=== PATIENT | female | born 1965 | race Caucasian/White ===

== ENCOUNTER 2018-03-11 08:30 | Emergency (ER) | payer BC, OTHER ==
[~2018-03-11] VITALS: Ht 162.6 cm; Wt 68.0 kg
--- OUTSIDE RECORDS SUMMARY | 2018-03-11 08:36 | XMS REPORT ---
Author Author ARTURO SORIA [facility] Address [address] [place] [address] Care Team Providers Care Top Hat Body Maker Name Role Phone ARTURO SORIA Unavailable PROBLEMS Unknown Problems ALLERGIES No Information ENCOUNTERS Encounter Location Date Diagnosis [facility] [address] [facility] [address] [id number] [address] Jul, Encounter for immunization Z23 IMMUNIZATIONS Vaccine Route Administration Date Status FLUARIX QUAD (3 AND UP) 2016 IM Intramuscular Jul 26, 2017 Administered SOCIAL HISTORY Never Assessed REASON FOR VISIT flu shot PLAN OF CARE VITAL SIGNS MEDICATIONS Unknown Medications RESULTS No Results PROCEDURES Procedure Date Ordered Result Body Site FLUARIX QUAD (3 AND UP) 2017 Jul 26, 2017 SINGLE IMMUNIZATION ADMIN Jul 26, 2017 INSTRUCTIONS MEDICATIONS ADMINISTERED No Known Medications
[2018-03-11] MEDS ORDERED: NS IV 1000 ML 1,000 ML IV STA (08:39)
[2018-03-11] MEDS ORDERED: ASPIRIN 81 MG CHEW (CHILDREN'S ASA) PO ONE (08:45)
[2018-03-11] MEDS ORDERED: LORazepam INJ 2 MG/ML (ATIVAN) VIAL IVP ONE (08:45)
[2018-03-11] MEDS ORDERED: ONDANSETRON 4 MG/2 ML (SDV) Z0FRAN IVP ONE (08:45)
[2018-03-11 09:00] LABS: BASOPHILS % (AUTO) 1 % (0-10); EOSINOPHILS # (AUTO) 0.1 10^3/uL (0.0-0.3); EOSINOPHILS % (AUTO) 2 % (0-10); HEMATOCRIT 43 % (35-52); HEMOGLOBIN 15.3 G/DL (11.5-16.0); LYMPHOCYTES # (AUTO) 1.2 X 10^3 (1.0-4.0); LYMPHOCYTES % (AUTO) 29 % (12-44); MEAN CORPUSCULAR HEMOGLOBIN 34 PG (25-34); MEAN CORPUSCULAR HGB CONC 36 G/DL (32-36); MEAN CORPUSCULAR VOLUME 96 FL (80-99); MEAN PLATELET VOLUME 10.4 FL (7.4-10.4); MONOCYTES # (AUTO) 0.8 X 10^3 (0.0-1.0); MONOCYTES % (AUTO) 20 % (0-12); NEUTROPHILS % (AUTO) 49 % (42-75); PLATELET COUNT 150 10^3/uL (130-400); RED BLOOD COUNT 4.48 10^6/uL (4.35-5.85); RED CELL DISTRIBUTION WIDTH 12.1 % (10.0-14.5); WHITE BLOOD COUNT 4.1 10^3/uL (4.3-11.0)
[2018-03-11 09:09] LABS: PROTHROMBIN TIME PATIENT 13.1 SEC (12.2-14.7)
--- NOTE | 2018-03-11 09:16 | Diagnostic Imaging Report ---
CHEST 1 VIEW, AP/PA ONLY Indication: Chest pain. Comparison: None available. Findings: No focal airspace disease in the visualized lungs. Please note that the posterior lower lobes are poorly evaluated by portable radiography. No pleural effusion or pneumothorax. Normal cardiomediastinal silhouette. Impression: No acute cardiopulmonary process by portable radiography. Dictated by: Dictated on workstation # [id number]
[2018-03-11 09:17] LABS: ALANINE AMINOTRANSFERASE 42 U/L (0-55); ALBUMIN 4.5 GM/DL (3.2-4.5); ALKALINE PHOSPHATASE 73 U/L (40-136); AMYLASE 28 U/L (25-125); BILIRUBIN,TOTAL 1.7 MG/DL (0.1-1.0); BUN/CREATININE RATIO 8; CALCIUM 10.2 MG/DL (8.5-10.1); CARBON DIOXIDE 18 MMOL/L (21-32); CHLORIDE 99 MMOL/L (98-107); CREATININE SERUM 0.64 MG/DL (0.60-1.30); GFR ESTIMATED > 60; GLUCOSE 101 MG/DL (70-105); LIPASE 28 U/L (8-78); MAGNESIUM 1.8 MG/DL (1.8-2.4); POTASSIUM 3.8 MMOL/L (3.6-5.0); SODIUM 137 MMOL/L (135-145); TOTAL PROTEIN 8.3 GM/DL (6.4-8.2)
[2018-03-11 09:23] LABS: MYOGLOBIN SERUM 29.8 NG/ML (10.0-92.0)
--- NOTE | 2018-03-11 09:28 | ED Chest Pain ---
General Chief Complaint: Chest Pain Stated Complaint: CHEST PAIN Nursing Triage Note: ARRIVED VIA AMB TO ROOM 05 WITH COMPLAINTS OF CHEST PAIN STARTING YESTERDAY. PT CRYING ET THINKS IT MIGHT BE ANXIETY UNDER LOTS OF STRESS AND RECENT DEATHS OF PARENTS. ALSO COMPLAINS OF N/V ET NIGHT SWEATS. Nursing Sepsis Screen: No Definite Risk Source: patient Exam Limitations: no limitations History of Present Illness Date Seen by Provider: Mar 11, 2018 Time Seen by Provider: 08:30 Initial Comments Here with report of central chest pain that is burning that started at 11 p.m. last night. Associated with night sweats. Feels like she's had fever over the last couple of days. Also complains of anxiety. She lost her father year ago on her mother recently. Has had nausea and vomiting since yesterday. Her father of liver cancer mother of COPD. There is significant cardiac history and her family. She has not had workup for this yet. Timing/Duration: 12-24 hours Severity/Quality: moderate, severe, burning, sharp Location: central Radiation: no radiation Activities at Onset: emotional stress Prior CP/Workup: no prior cardiac workup ASA po COIN PURSE ASSEMBLER: No NTG SL COIN PURSE ASSEMBLER: No Associated Symptoms: abdominal pain (upper abdomen bilateral), diaphoresis, fever/chills, nausea/vomiting; No shortness of breath, No weakness Allergies and Home Medications Allergies Coded Allergies: Sulfa (Sulfonamide Antibiotics) (Verified Allergy, Unknown, 03/11/18) Patient Home Medication List Home Medication List Reviewed: Yes Review of Systems Constitutional: see HPI, chills, fever EENTM: No Symptoms Reported Respiratory: No Symptoms Reported Cardiovascular: See HPI, Chest Pain; Denies Edema, Denies Lightheadedness Gastrointestinal: Abdominal Pain, Nausea, Vomiting Musculoskeletal: no symptoms reported Skin: no symptoms reported Psychiatric/Neurological: Anxiety, Depressed All Other Systems Reviewed Negative Unless Noted: Yes Past Meuukis-Ifhclm-Fqagmm Hx Past Med/Social Hx: Reviewed Nursing Past Med/Soc Hx Patient Social History Alcohol Use: Regular Use Alcohol Beverage of Choice: Beer Recreational Drug Use: No Smoking Status: Current Someday Smoker Type Used: Cigarettes Recent Foreign Travel: No Contact w/Someone Who Travel: No Recent Infectious Disease Expo: No Past Medical History Surgeries: Yes Adenoidectomy, Orthopedic, Tracheostomy Respiratory: No Cardiac: No Neurological: No Genitourinary: No Gastrointestinal: No Musculoskeletal: No Endocrine: No HEENT: No Cancer: No Psychosocial: No Family Medical History Reviewed Nursing Family Hx Heart Disease, Diabetes, Hypertension, Stroke Physical Exam Vital Signs Vital Signs - First Documented 03/11/18 08:30 Temp 98.0 Pulse 103 Resp 18 B/P (MAP) 160/124 (136) Pulse Ox 97 O2 Delivery Room Air Capillary Refill : Less Than 3 Seconds General Appearance: WD/WN, Anxious HEENT: PERRL/EOMI, Pharynx Normal Neck: Non Tender, Supple Respiratory: Lungs Clear, Normal Breath Sounds Cardiovascular: No Murmur, Tachycardia Gastrointestinal: Non Tender, Soft Extremity: Normal Inspection, Normal Range of Motion Neurologic/Psychiatric: Alert, Oriented x3 Skin: Normal Color, Warm/Dry Progress/Results/Core Measures Results/Orders Lab Results Laboratory Tests Test 03/11/18 08:52 Range/Units White Blood Count 4.1 L 4.3-11.0 10^3/uL Red Blood Count 4.48 4.35-5.85 10^6/uL Hemoglobin 15.3 11.5-16.0 G/DL Hematocrit 43 35-52 % Mean Corpuscular Volume 96 80-99 FL Mean Corpuscular Hemoglobin 34 25-34 PG Mean Corpuscular Hemoglobin Concent 36 32-36 G/DL Red Cell Distribution Width 12.1 10.0-14.5 % Platelet Count 150 130-400 10^3/uL Mean Platelet Volume 10.4 7.4-10.4 FL Neutrophils (%) (Auto) 49 42-75 % Lymphocytes (%) (Auto) 29 12-44 % Monocytes (%) (Auto) 20 H 0-12 % Eosinophils (%) (Auto) 2 0-10 % Basophils (%) (Auto) 1 0-10 % Neutrophils # (Auto) 2.0 1.8-7.8 X 10^3 Lymphocytes # (Auto) 1.2 1.0-4.0 X 10^3 Monocytes # (Auto) 0.8 0.0-1.0 X 10^3 Eosinophils # (Auto) 0.1 0.0-0.3 10^3/uL Basophils # (Auto) 0.0 0.0-0.1 10^3/uL Neutrophils % (Manual) 53 % Lymphocytes % (Manual) 19 % Monocytes % (Manual) 14 % Eosinophils % (Manual) 1 % Reactive Lymphocytes 13 % Prothrombin Time 13.1 12.2-14.7 SEC INR Comment 1.0 0.8-1.4 Activated Partial Thromboplast Time 29 24-35 SEC Sodium Level 137 135-145 MMOL/L Potassium Level 3.8 3.6-5.0 MMOL/L Chloride Level 99 98-107 MMOL/L Carbon Dioxide Level 18 L 21-32 MMOL/L Anion Gap 20 H 5-14 MMOL/L Blood Urea Nitrogen 5 L 7-18 MG/DL Creatinine 0.64 0.60-1.30 MG/DL Estimat Glomerular Filtration Rate > 60 BUN/Creatinine Ratio 8 Glucose Level 101 70-105 MG/DL Calcium Level 10.2 H 8.5-10.1 MG/DL Magnesium Level 1.8 1.8-2.4 MG/DL Total Bilirubin 1.7 H 0.1-1.0 MG/DL Aspartate Amino Transf (AST/SGOT) 67 H 5-34 U/L Alanine Aminotransferase (ALT/SGPT) 42 0-55 U/L Alkaline Phosphatase 73 40-136 U/L Myoglobin 29.8 10.0-92.0 NG/ML Troponin I < 0.30 <0.30 NG/ML Total Protein 8.3 H 6.4-8.2 GM/DL Albumin 4.5 3.2-4.5 GM/DL Amylase Level 28 25-125 U/L Lipase 28 8-78 U/L My Orders Orders - ROCHELLE JACOBS MD Ekg Tracing (03/11/18 08:32) Cbc With Automated Diff (03/11/18 08:39) Magnesium (03/11/18 08:39) Chest 1 View, Ap/Pa Only (03/11/18 08:39) Cardiac Profile 1 (03/11/18 08:39) Comprehensive Metabolic Panel (03/11/18 08:39) Myoglobin Serum (03/11/18 08:39) Protime With Inr (03/11/18 08:39) Partial Thromboplastin Time (03/11/18 08:39) O2 (03/11/18 08:39) Monitor-Rhythm Ecg Trace Only (03/11/18 08:39) Lipid Panel (03/12/18 06:00) Aspirin Chewable Tablet (Baby Aspirin Ch (03/11/18 08:45) Saline Lock/Iv-Start (03/11/18 08:39) Lipase (03/11/18 08:39) Amylase (03/11/18 08:39) Ondansetron Injection (Zofran Injectio (03/11/18 08:45) Ns Iv 1000 Ml (Sodium Chloride 0.9%) (03/11/18 08:39) Lorazepam Injection (Ativan Injection) (03/11/18 08:45) Manual Differential (03/11/18 08:52) Lidocaine 2% Viscous 15 Ml (Xylocaine Vi (03/11/18 09:30) Antacid Suspension (Mylanta Suspension (03/11/18 09:30) Ct Abdomen/Pelvis W (03/11/18 09:42) Iohexol Injection (Omnipaque 350 Mg/Ml 1 (03/11/18 10:00) Sodium Chloride Flush (Catheter Flush Sy (03/11/18 10:00) Ns (Ivpb) (Sodium Chloride 0.9%) (03/11/18 10:00) Medications Given in ED Current Medications Medications Dose Ordered Sig/Omsany Route Start Time Stop Time Status Last Admin Dose Admin Al Hydrox/Mg Hydrox/Simethicone 30 ml ONCE ONCE PO 03/11/18 09:30 03/11/18 09:31 DC 03/11/18 09:31 30 ML Aspirin 324 mg ONCE ONCE PO 03/11/18 08:45 03/11/18 08:46 DC 03/11/18 09:12 324 MG Iohexol 100 ml ONCE ONCE IV 03/11/18 10:00 03/11/18 10:01 DC 03/11/18 10:25 100 ML Lidocaine HCl 15 ml ONCE ONCE PO 03/11/18 09:30 03/11/18 09:31 DC 03/11/18 09:31 15 ML Lorazepam 0.5 mg ONCE ONCE IVP 03/11/18 08:45 03/11/18 08:46 DC 03/11/18 09:10 0.5 MG Ondansetron HCl 4 mg ONCE ONCE IVP 03/11/18 08:45 03/11/18 08:46 DC 03/11/18 09:09 4 MG Sodium Chloride 10 ml NEEDED PRN IV 03/11/18 10:00 03/11/18 10:26 10 ML Sodium Chloride 250 ml ONCE ONCE IV 03/11/18 10:00 03/11/18 10:01 DC 03/11/18 10:26 80 ML Vital Signs/I&O 03/11/18 08:30 Temp 98.0 Pulse 103 Resp 18 B/P (MAP) 160/124 (136) Pulse Ox 97 O2 Delivery Room Air Blood Pressure Mean: 136 Progress Progress Note : Progress Note Seen and evaluated. IV, labs, EKG and chest x-ray ordered. ASA 325 mg by mouth ordered. Normal saline 1 L bolus. Ativan 0.5 mg IV given. GI cocktail given. Monitor patient. This did improve her symptoms. CT abdomen pelvis ordered due to elevated liver enzymes and because of her family history. 1100: I have reviewed the CT scan and review the CT scan results with the patient. There is worrisome for metastatic disease due to multiple low-density lesions in the liver. Patient has primary overnight [place] that she is concerned and would prefer primary over here. I have discussed the case with Dr. Lubin. He will see her in the office tomorrow and wants her to call in the morning for appointment time. He will assist with establishing biopsy as well as for evaluation for upper and lower endoscopy. Due to patient's anxiety, I will prescribe short course of and a anxiety medicine. She is also working on establishing care with Dr. RYLIE Mane. Discharged home with return precautions. Patient verbalize understanding instructions and agreement with plan. Diagnostic Imaging Diagonstic Imaging: Xray Plain Films/CT/US/NM/MRI: chest Comments NAME: ARTURO SANTANA [facility] REC#: [id number] PT STATUS: REG ER : 1965 PHYSICIAN: ROCHELLE JACOBS MD ADMIT DATE: 03/11/18/ER Signed Date of Exam: 03/11/18 CHEST 1 VIEW, AP/PA ONLY CHEST 1 VIEW, AP/PA ONLY Indication: Chest pain. Comparison: None available. Findings: No focal airspace disease in the visualized lungs. Please note that the posterior lower lobes are poorly evaluated by portable radiography. No pleural effusion or pneumothorax. Normal cardiomediastinal silhouette. Impression: No acute cardiopulmonary process by portable radiography. Dictated by: Dictated on workstation # [id number] Dict: 03/11/18913 Trans: 03/11/18913 Interpreted by: PENNY CARVER MD Electronically signed by: PENNY CARVER MD 03/11/18913 Diagonstic Imaging: CT Plain Films/CT/US/NM/MRI: abdomen, pelvis Comments NAME: ARTURO SANTANA REC#: [id number] PT STATUS: REG ER : 1965 PHYSICIAN: ROCHELLE JACOBS MD ADMIT DATE: 03/11/18/ER Signed Date of Exam: 03/11/18 CT ABDOMEN/PELVIS W PROCEDURE: CT abdomen and pelvis with contrast. TECHNIQUE: Multiple contiguous axial images were obtained through the abdomen and pelvis after administration of intravenous contrast. INDICATION: Epigastric pain and elevated LFTs. FINDINGS: Heart size is normal. Lung bases are clear. There is fatty infiltration of liver. There are multiple low-density liver lesions. There is no biliary ductal dilatation. Gallbladder is unremarkable. Spleen is normal. The pancreas and adrenal glands are unremarkable. The kidneys are normal in appearance. Aorta is nonaneurysmal. Bowel gas pattern is nonspecific. There is no free air. There is no ascites. Bladder is normal. The osseous structures are unremarkable. IMPRESSION: 1. Fatty infiltration of the liver with multiple low-density lesions in the liver. These are nonspecific however worrisome for metastatic disease. Recommend clinical correlation and, if warranted, followup with biopsy. 2. No other acute abnormality in the abdomen or pelvis. Dictated by: Dictated on workstation # [id number] Dict: 03/11/18 1026 Trans: 03/11/18 1038 Interpreted by: CASA NLESON MD Electronically signed by: CASA NELSON MD 03/11/18 1038 Departure Impression Primary Impression: Chest pain Qualified Codes: R07.9 - Chest pain, unspecified Additional Impressions: Abdominal pain Qualified Codes: R10.13 - Epigastric pain Hepatic lesion Disposition: 01 HOME, SELF-CARE Condition: Improved Departure-Patient Inst. Decision time for Depature: 11:19 Referrals: MACRINA MANE MD (PCP) Primary Care Physician LATASHA LUBIN MD Patient Instructions: Acute Abdomen (Belly Pain), Adult (DC), Chest Pain (DC) Add. Discharge Instructions: All discharge instructions reviewed with patient and/or family. Voiced understanding. Take medications as directed. Call Dr. Lubin's office in the morning for appointment tomorrow. You need follow-up for recheck of the liver and for possible liver biopsy of the lesions. Also discussed with Dr. Lubin regarding colonoscopy and upper endoscopy (scope). Return for worse pain, fever, vomiting , weakness, breathing problems or other concerns as needed. Scripts Lorazepam (Ativan) 0.5 Mg Tablet 0.5 MG PO TID PRN for ANXIETY, #10 TAB 0 Refills Prov: ROCHELLE JACOBS MD 03/11/18 Ondansetron (Ondansetron Odt) 4 Mg Tab.rapdis 4 MG PO Q6H PRN for NAUSEA/VOMITING, #8 TAB 0 Refills Prov: ROCHELLE JACOBS MD 03/11/18 Copy Copies To 1: LATASHA LUBIN MD, TIMOTHY D MD Mar 11, 2018 09:28
[2018-03-11 09:30] LABS: EOSINOPHILS % (MANUAL) 1 %; LYMPHOCYTES % (MANUAL) 19 %; MONOCYTES % (MANUAL) 14 %; NEUTROPHILS % (MANUAL) 53 %; REACTIVE LYMPHOCYTES 13 %
[2018-03-11] MEDS ORDERED: ANTACID SUSP 30 ML UDC (MYLANTA) PO ONE (09:30)
[2018-03-11] MEDS ORDERED: LIDOCAINE 2% VISCOUS 15 ML UDC PO ONE (09:30)
[2018-03-11] MEDS ORDERED: NS 250 ML (IVPB) BAG IV ONE (10:00)
[2018-03-11] MEDS ORDERED: IOHEXOL 350 MG/ML 100 ML (OMNIPAQUE 350) VIAL IV ONE (10:00)
[2018-03-11] MEDS ORDERED: CATHETER FLUSH 10 ML SYR IV PRN (10:00)
--- NOTE | 2018-03-11 10:33 | Diagnostic Imaging Report ---
PROCEDURE: CT abdomen and pelvis with contrast. TECHNIQUE: Multiple contiguous axial images were obtained through the abdomen and pelvis after administration of intravenous contrast. INDICATION: Epigastric pain and elevated LFTs. FINDINGS: Heart size is normal. Lung bases are clear. There is fatty infiltration of liver. There are multiple low-density liver lesions. There is no biliary ductal dilatation. Gallbladder is unremarkable. Spleen is normal. The pancreas and adrenal glands are unremarkable. The kidneys are normal in appearance. Aorta is nonaneurysmal. Bowel gas pattern is nonspecific. There is no free air. There is no ascites. Bladder is normal. The osseous structures are unremarkable. IMPRESSION: 1. Fatty infiltration of the liver with multiple low-density lesions in the liver. These are nonspecific however worrisome for metastatic disease. Recommend clinical correlation and, if warranted, followup with biopsy. 2. No other acute abnormality in the abdomen or pelvis. Dictated by: Dictated on workstation # [id number]
[2018-03-11] MEDS ORDERED: ONDA4TAB11 PO (11:22)
[2018-03-11] MEDS ORDERED: LORA-404 PO (11:22)
[2018-03-11 11:25] VITALS: BP 146/95
[2018-03-21] MEDS ORDERED: PANT40TA2 PO (13:37)
== END 2018-03-11 11:25 | disposition home or self-care (01) ==
LOC: ER 08:33
DX: K76.9 Liver disease, unspecified (principal); R07.89 Other chest pain; F17.210 Nicotine dependence, cigarettes, uncomplicated; Z90.89 Acquired absence of other organs; Z88.2 Allergy status to sulfonamides; Z82.49 Family history of ischemic heart disease and other diseases of the circulatory system
CPT/HCPCS: 36415; 71045; 74177; 80053; 82150; 83690; 83735; 83874; 84484; 85007; 85027; 85610; 85730; 93005; 93041; 96361; 96374; 96375

== ENCOUNTER 2018-03-13 11:53 | Outpatient (CLI) | payer BC ==
[~2018-03-13] VITALS: Ht 162.6 cm; Wt 70.3 kg
[2018-03-13] VITALS (11 sets, daily range): BP systolic 129–160; BP diastolic 86–99
[~2018-03-13 11:53] MED LIST: LORA-404 PO; ONDA4TAB11 PO
[2018-03-13] MEDS ORDERED: NS IV 1000 ML 1,000 ML IV STA (12:04)
[2018-03-13] MEDS ORDERED: LIDOCAINE 1% INJ 20 ML 20 ML VIAL INJ ONE (12:15)
[2018-03-13] MEDS ORDERED: fentaNYL INJECTION 100 MCG/2 ML AMP IVP PRN (12:15)
[2018-03-13] MEDS ORDERED: MIDAZOLAM 2 MG/2 ML (VERSED) VIAL IVP PRN (12:15)
[2018-03-13] MEDS ORDERED: OMEP20TA7 PO (13:05)
[2018-03-13] MEDS ORDERED: MULT-974 PO (13:05)
--- NOTE | 2018-03-13 13:44 | Diagnostic Imaging Report ---
INDICATION: Liver lesions. Patient presents for CT-guided biopsy. FINDINGS: After informed written consent was obtained from the patient, patient was brought to the CT suite, placed on the table in the supine position. Axial imaging through the abdomen was performed to evaluate appropriate entry site. The right abdomen was prepped and draped in usual sterile fashion. Small amount of 1% lidocaine was utilized for local anesthesia. 18-gauge coaxial Temno needle was advanced and placed with its tip within the low-density lesion in the inferior right lobe of the liver. Approximately 5 core biopsies were obtained. Needle was withdrawn, hemostasis was obtained. Patient tolerated the procedure well and left the department in stable condition. IMPRESSION: Successful CT-guided biopsy of right lobe liver mass. Pathology results are currently pending. Dictated by: Dictated on workstation # [id number]
[2018-03-13] MEDS ORDERED: HYDROcodone/APAP 5 MG/325 MG (LORTAB) TAB PO PRN (13:45)
--- NOTE | 2018-03-13 14:40 | Pre-Procedure Progress Note ---
Pre-Procedure Progress Note H&P Reviewed The H&P was reviewed, patient examined and no changes noted. Date H&P Reviewed: Mar 13, 2018 Time H&P Reviewed: 12:00 Pre-Procedure Diagnosis: Liver mass JONAS SHAW MD Mar 13, 2018 14:40
[2018-03-13] MEDS ORDERED: HYDROcodone/APAP 5 MG/325 MG (LORTAB) TAB ONE (14:42)
== END 2018-03-13 16:01 | disposition home or self-care (01) ==
LOC: SDC 11:53 → SURG 13:42 → SDC 16:01
PROVIDERS: ATTEND Surgery
DX: K76.0 Fatty (change of) liver, not elsewhere classified (principal); R16.0 Hepatomegaly, not elsewhere classified; Z80.8 Family history of malignant neoplasm of other organs or systems; F17.210 Nicotine dependence, cigarettes, uncomplicated
CPT/HCPCS: 77012; 88307; 88313

== ENCOUNTER 2018-03-14 05:52 | Outpatient (CLI) | payer BC ==
[~2018-03-14] VITALS: Ht 162.6 cm; Wt 70.3 kg
[~2018-03-14 05:52] MED LIST changes: +MULT-974 PO; +OMEP20TA7 PO
== END 2018-03-14 13:16 ==
LOC: PREOP 05:52
PROVIDERS: ATTEND Surgery
DX: Z01.818 Encounter for other preprocedural examination (principal)

== ENCOUNTER → 2018-03-16 | Outpatient (CLI) | payer BC ==
[~2018-03-16] MED LIST changes: +PANT40TA2 PO
[2018-03-16 08:04] LABS: HEMOGLOBIN 13.7 G/DL (11.5-16.0); MEAN PLATELET VOLUME 10.5 FL (7.4-10.4); RED BLOOD COUNT 4.04 10^6/uL (4.35-5.85); RED CELL DISTRIBUTION WIDTH 12.5 % (10.0-14.5); WHITE BLOOD COUNT 3.4 10^3/uL (4.3-11.0)
[2018-03-16 08:20] LABS: ALANINE AMINOTRANSFERASE 45 U/L (0-55); ALKALINE PHOSPHATASE 62 U/L (40-136); BILIRUBIN,TOTAL 0.3 MG/DL (0.1-1.0); BUN/CREATININE RATIO 11; CALCIUM 8.9 MG/DL (8.5-10.1); CARBON DIOXIDE 23 MMOL/L (21-32); CHLORIDE 110 MMOL/L (98-107); CREATININE SERUM 0.55 MG/DL (0.60-1.30); GFR ESTIMATED > 60; GLUCOSE 99 MG/DL (70-105); POTASSIUM 3.9 MMOL/L (3.6-5.0); SODIUM 142 MMOL/L (135-145); TOTAL PROTEIN 7.1 GM/DL (6.4-8.2)
--- NOTE | 2018-03-16 09:09 | Diagnostic Imaging Report ---
PROCEDURE: US Gallbladder. TECHNIQUE: Multiple real-time grayscale images were obtained over the right upper quadrant in various projections. INDICATION: Right upper quadrant pain and elevated LFTs. FINDINGS: There is diffuse increased echogenicity of the liver compatible with fatty infiltration. There are multiple hypoechoic areas in the liver. These are nonspecific, however, metastatic disease cannot be excluded. There is also hepatic cyst. There is no intrahepatic biliary duct dilatation. There is prominence of the common bile duct up to 7 mm. Pancreas is not well seen due to bowel gas. There is no ascites. IMPRESSION: Fatty infiltration of the liver with multiple hypoechoic lesions. These are nonspecific, however, metastatic disease cannot be excluded. Prominence of the common bile duct up to 7 mm. This is likely due to patient's age, however, distal common bile duct stone cannot be entirely excluded. Recommend clinical correlation and if warranted followup with MRCP. Dictated by: Dictated on workstation # [id number]
== END ==
LOC: RAD 07:41
PROVIDERS: ATTEND Physician Assistant
DX: K76.89 Other specified diseases of liver (principal)
CPT/HCPCS: 36415; 76705; 80053; 83036; 85027

== ENCOUNTER 2018-03-21 10:13 | Day surgery (SDC) | payer BC ==
[~2018-03-21] VITALS: Ht 162.6 cm; Wt 70.3 kg
[~2018-03-21 10:13] MED LIST changes: -PANT40TA2 PO
[2018-03-21 10:15] VITALS: BP 116/90
[2018-03-21] MEDS ORDERED: NS IV 500 ML 500 ML IV PRN (10:32)
[2018-03-21] MEDS ORDERED: NS IV 500 ML 500 ML ONE (10:35)
[2018-03-21] MEDS ORDERED: HURRICAINE EXT TUBE (BENZOCAINE) XX PRN (10:45)
[2018-03-21] MEDS ORDERED: LIDOCAINE JELLY 2% (XYLOCAINE) 5 ML TUBE MM PRN (10:45)
--- NOTE | 2018-03-21 11:38 | Conscious Sedation/ASA ---
Conscious Sedation Pre-Proced Time Reviewed: 11:00 ASA Class: 2 Airway Mallampati Classification: (lummi appropriate class) I. II. III, IV Lungs Heart ASA score ASA 1: a normal healthy patient ASA 2: a patient with a mild systemic disease (mid diabetes, controlled hypertension, obesity ASA 3: a patient with a severe systemic disease that limits activity (angina , COPD, prior Myocardial infarction) ASA 4: a patient with an incapacitating disease that is a constant threat to life (CHF, renal failure) ASA 5: a moribund patient not expected to survive 24 hrs. (ruptured aneurysm) ASA 6: a declared brain patient whose organs are being harvested. For emergent operations, add the letter E after the classification Grade 2 Sedation Plan: Analgesia, Amnesia, Plan communicated to team members, Discussed options with patient/fam, Discussed risks with patient/fam Note The patient is an appropriate candidate to undergo the planned procedure, sedation, and anesthesia. The patient immediately re-assessed prior to indication. LATASHA GONZÁLES MD Mar 21, 2018 11:38 am
--- NOTE | 2018-03-21 11:39 | Progress Note-Pre Operative ---
Pre-Operative Progress Note H&P Reviewed The H&P was reviewed, patient examined and no changes noted. Date Seen by Provider: Mar 21, 2018 Time Seen by Provider: 11:00 Date H&P Reviewed: Mar 21, 2018 Time H&P Reviewed: 11:00 Pre-Operative Diagnosis: screening colon, GERD LATASHA GONZÁLES MD Mar 21, 2018 11:39 am
[2018-03-21] MEDS ORDERED: ACETAMINOPHEN 325 MG TABLET PO PRN (11:45)
[2018-03-21] MEDS ORDERED: HYDROcodone/APAP 5 MG/325 MG (LORTAB) TAB PO PRN (11:45)
[2018-03-21] MEDS ORDERED: ONDANSETRON 4 MG/2 ML (SDV) Z0FRAN IV PRN (11:45)
[2018-03-21] MEDS ORDERED: morphine INJ 10 MG/ML 1ML (SYR OR VIAL) IV PRN (11:45)
[2018-03-21] MEDS ORDERED: fentaNYL INJECTION 100 MCG/2 ML AMP ONE ×2 (12:12)
[2018-03-21] MEDS ORDERED: LIDOCAINE JELLY 2% (XYLOCAINE) 5 ML TUBE ONE (12:12)
[2018-03-21] MEDS ORDERED: MIDAZOLAM 2 MG/2 ML (VERSED) VIAL ONE ×6 (12:12→12:13)
[2018-03-21] MEDS ORDERED: HURRICAINE EXT TUBE (BENZOCAINE) ONE (12:13)
[2018-03-21] MEDS: fentaNYL INJECTION 100 MCG/2 ML AMP IVP PRN ×4 (12:30→13:06)
[2018-03-21] MEDS: MIDAZOLAM 2 MG/2 ML (VERSED) VIAL IVP PRN ×6 (12:31→13:07)
--- NOTE | 2018-03-21 13:36 | Progress Note-Post Operative ---
Post-Operative Progess Note Surgeon (s)/Denture Waxer (s) Surgeon LATASHA GONZÁLES MD Denture Waxer: none Pre-Operative Diagnosis screening colon, GERD Post-Operative Diagnosis reflux esophagitis(class B), moderate HH(3cm), moderate gastritis. chronic stage 1 ext and int hemorrhoids. Procedure & Operative Findings Date of Procedure 03/21/18 Procedure Performed/Findings EGD with bx. Colonoscopy, Anesthesia Type CS Estimated Blood Loss Estimated blood loss (mL): minimal Specimens/Packing Specimens Removed GE jxn, antrum LATASHA GONZÁLES MD Mar 21, 2018 1:36 pm
[2018-03-21] MEDS ORDERED: PANT40TA2 PO (13:37)
--- NOTE | 2018-03-21 13:38 | Discharge Inst-Surgical ---
D/C Lap Instructions-KIDO New, Converted, or Re-Newed RX: RX on Chart Follow Up 6 weeks. Activity as tolerated High Fiber Diet 25g or more per day Avoid Alcohol, Caffeine, Spicy Kincaid and Acid foods. Drink 64 fluid oz or more of fluids per day. Symptoms to Report: Fever over 101 degree F, Nausea/Vomiting If any problems/questions: Contact your physician or go to Emergency Room LATASHA GONZÁLES MD Mar 21, 2018 1:38 pm
[2018-03-21 13:45] VITALS: BP 114/87
[2018-03-21 14:15] VITALS: BP 120/90
[2018-03-21 14:20] VITALS: BP 120/90
--- NOTE | 2018-03-21 23:03 | OPERATIVE REPORT ---
DATE OF SERVICE: 03/21/2018 ATTENDING PRIMARY CARE PHYSICIAN: Dr. Darling. PREOPERATIVE DIAGNOSES: Chest pain, gastroesophageal reflux disease, screening colonoscopy. POSTOPERATIVE DIAGNOSES: Reflux esophagitis class B, moderate size hiatal hernia approximately 3 cm in size, mild to moderate gastritis. Mild chronic stage I external and internal hemorrhoids. Remainder of the rectum and colon were normal. PROCEDURE: EGD with biopsy, colonoscopy. SURGEON: Latasha Gonzáles MD. ANESTHESIA: Conscious sedation. ESTIMATED BLOOD LOSS: Minimal. FINDINGS: Reflux esophagitis class B. No strictures or ulcerations. Moderate size hiatal hernia approximately 3 cm in size, moderate gastritis. Pylorus and duodenum appeared normal. Colonoscopy chronic, stage I external and internal hemorrhoids not actively edematous nor inflamed and no bleeding. The remainder of the rectum and colon were normal. There were no polyps or any neoplasms identified. DISPOSITION: The patient tolerated the procedure well. INDICATIONS: The patient is a 52-year-old female who presented to the Emergency Department with epigastric pain as well as chest pain. She reports increased anxiety in recent weeks and thought this was related to this. She did have a cardiac workup, which was negative. A CT scan was also performed, which did show multiple small densities in the liver with a slightly elevated bilirubin of 1.7. She also has not had a colonoscopy up to this point in her life. DESCRIPTION OF PROCEDURE: The patient was brought to the endoscopy suite, laid in left lateral decubitus position with head slightly elevated. After adequate IV pain and sedative medications and conscious sedation anesthesia, the mouthpiece was applied. The endoscope was placed in the mouth, visualizing the pharynx and hypopharyngeal region. Vocal cords, epiglottis and vallecula identified and appeared to be normal. The endoscope was gently intubated in the esophageal opening and esophagus insufflated. The endoscope was then advanced to the first, second and third portions of the esophagus at the level of the GE junction, a reflux esophagitis class B identified. There were no ulcers or strictures identified in this region. A biopsy was taken using forceps with visualization of good hemostasis. The gastroesophageal junction was also intrathoracic consistent with a hiatal hernia. The endoscope was then easily advanced in the stomach and endoscope retroflexed, visualizing the hiatal hernia, which was approximately 3 cm in size. There was a diffuse moderate gastritis. There was no formal ulcers, polyps or any neoplasms. A biopsy was taken of the stomach antrum with visualization of good hemostasis. The endoscope was then advanced to the pylorus and first and second portion of the duodenum, which appeared normal with no distal obstructions. The endoscope was then slowly withdrawn while taking a second look and suctioning of residual air with no additional findings. The patient tolerated this portion of procedure well. We will recommend the necessary lifestyle and diet accommodation including small and more frequent meals, avoidance of eating at night as well as head elevation while lying supine. She also needs to avoid caffeinated beverages, spicy, greasy and acidic foods as well as smoking cessation. Under the same anesthesia, we then proceeded with colonoscopy portion of the procedure. A digital rectal examination was performed, which revealed chronic stage I external and internal hemorrhoids, not actively edematous nor inflamed and no bleeding. Normal sphincter tone was felt and there were no palpable masses. The endoscope was then intubated to the anus and rectum gently insufflated. The endoscope was then advanced to the valves of Conte in the rectum with no polyps or any neoplasms identified. The endoscope was then advanced through the sigmoid colon where no diverticulosis identified. We then proceeded through the remainder of the descending, transverse and ascending colon to the cecum. These segments were normal as well. There were no polyps or any neoplasms identified throughout the colon or rectum. The endoscope was then slowly withdrawn while taking a second look and suctioning of residual air with no additional findings. The patient tolerated the procedure well. We will recommend a high-fiber diet with at least 25 grams of fiber per day as well as at least 64 fluid ounces of water daily to promote soft stools on a daily basis She does not need another colonoscopy for another 10 years; however, sooner if she becomes symptomatic. Job ID: [id number] DocumentID: [id number] Dictated Date: 03/21/2018 13:30:05 [employer] Team Member Date: 03/21/2018 23:02:44 Dictated By: LATASHA GONZÁLES MD [facility]
== END 2018-03-21 14:25 | disposition home or self-care (01) ==
LOC: ENDO 10:13
PROVIDERS: ATTEND Surgery
DX: Z12.11 Encounter for screening for malignant neoplasm of colon (principal); K21.0 Gastro-esophageal reflux disease with esophagitis; K44.9 Diaphragmatic hernia without obstruction or gangrene; K29.70 Gastritis, unspecified, without bleeding; K64.0 First degree hemorrhoids

== ENCOUNTER → 2018-04-06 | Outpatient (CLI) | payer BC ==
[~2018-04-06] MED LIST changes: +CATHETER FLUSH 10 ML SYR IV PRN; +HYDR-34 PO; +PANT40TA2 PO
--- NOTE | 2018-04-06 16:59 | Diagnostic Imaging Report ---
INDICATION: Right upper quadrant pain. TECHNIQUE: The patient was administered 5.2 mCi technetium 99m Choletec intravenously and imaging of the abdomen was performed. After 60 minutes, the patient ingested one can of Ensure and gallbladder ejection fraction was calculated. FINDINGS: There is homogeneous uptake of activity by the liver. There is prompt excretion of activity into the common duct and gallbladder. Normal passage of activity into the small bowel is seen. Gallbladder ejection fraction is abnormally low at 14%. Normal values are 35% or greater. IMPRESSION: 1. No evidence of cystic duct or common bile duct obstruction. 2. Abnormally low gallbladder ejection fraction of 14%. Dictated by: Dictated on workstation # [id number]
== END ==
LOC: CARD 11:41
PROVIDERS: ATTEND Physician Assistant
DX: R10.11 Right upper quadrant pain (principal); K82.8 Other specified diseases of gallbladder
CPT/HCPCS: 78227

== ENCOUNTER 2018-04-19 10:01 | Day surgery (SDC) | payer BC ==
[~2018-04-19] VITALS: Ht 160 cm; Wt 70.3 kg
[~2018-04-19 10:01] MED LIST changes: -CATHETER FLUSH 10 ML SYR IV PRN; -HYDR-34 PO
[2018-04-19 10:15] VITALS: BP 121/83
[2018-04-19 10:40] LABS: BASOPHILS % (AUTO) 1 % (0-10); EOSINOPHILS # (AUTO) 0.1 10^3/uL (0.0-0.3); EOSINOPHILS % (AUTO) 4 % (0-10); HEMATOCRIT 40 % (35-52); HEMOGLOBIN 13.9 G/DL (11.5-16.0); LYMPHOCYTES # (AUTO) 1.6 X 10^3 (1.0-4.0); LYMPHOCYTES % (AUTO) 44 % (12-44); MEAN CORPUSCULAR HEMOGLOBIN 33 PG (25-34); MEAN CORPUSCULAR HGB CONC 35 G/DL (32-36); MEAN CORPUSCULAR VOLUME 96 FL (80-99); MEAN PLATELET VOLUME 10.5 FL (7.4-10.4); MONOCYTES # (AUTO) 0.6 X 10^3 (0.0-1.0); MONOCYTES % (AUTO) 17 % (0-12); NEUTROPHILS # (AUTO) 1.2 X 10^3 (1.8-7.8); NEUTROPHILS % (AUTO) 34 % (42-75); PLATELET COUNT 186 10^3/uL (130-400); RED BLOOD COUNT 4.21 10^6/uL (4.35-5.85); RED CELL DISTRIBUTION WIDTH 12.5 % (10.0-14.5); WHITE BLOOD COUNT 3.6 10^3/uL (4.3-11.0)
--- NOTE | 2018-04-19 11:05 | Progress Note-Pre Operative ---
Pre-Operative Progress Note H&P Reviewed The H&P was reviewed, patient examined and no changes noted. Date Seen by Provider: Apr 19, 2018 Time Seen by Provider: 11:04 Date H&P Reviewed: Apr 19, 2018 Time H&P Reviewed: 11:04 Pre-Operative Diagnosis: symptomatic biliary dyskinesia LATASHA GONZÁLES MD Apr 19, 2018 11:05 am
[2018-04-19] MEDS ORDERED: ACETAMINOPHEN 325 MG TABLET PO PRN (11:15)
[2018-04-19] MEDS ORDERED: morphine INJ 10 MG/ML 1ML (SYR OR VIAL) IVP PRN (11:15)
[2018-04-19] MEDS ORDERED: LACTATED RINGERS 1,000 ML IV ONE ×2 (11:15→14:36)
[2018-04-19] MEDS ORDERED: oxyCODONE/APAP 5/325MG (PERCOCET 5) TABLET PO PRN (11:15)
[2018-04-19] MEDS ORDERED: ONDANSETRON 4 MG/2 ML (SDV) Z0FRAN IVP PRN ×2 (11:15→16:00)
[2018-04-19] MEDS ORDERED: CATHETER FLUSH 10 ML SYR IV PRN (11:45)
[2018-04-19] MEDS ORDERED: ceFAZolin 1 GM/NS 50 ML IVPB IV ONE ×2 (11:45)
[2018-04-19] MEDS ORDERED: FAMOTIDINE 20MG/2ML IV (PEPCID) ONE (13:07)
[2018-04-19] MEDS ORDERED: FAMOTIDINE 20MG/2ML IV (PEPCID) IVP ONE (13:15)
[2018-04-19] MEDS: LACTATED RINGERS 1,000 ML IV SCH ×2 (13:15→15:24)
[2018-04-19] MEDS ORDERED: MIDAZOLAM 2 MG/2 ML (VERSED) VIAL ONE ×2 (14:03→14:26)
[2018-04-19] MEDS ORDERED: ROCURONIUM 10 MG/ML 5 ML SYRINGE IV ONE (14:36)
[2018-04-19] MEDS ORDERED: LIDOCAINE PF 2% 5 ML (XYLOCAINE) VIAL ONE (14:36)
[2018-04-19] MEDS ORDERED: proPOfol 200 MG/20 ML (DIPRIVAN) VIAL IV ONE (14:36)
[2018-04-19] MEDS ORDERED: ONDANSETRON 4 MG/2 ML (SDV) Z0FRAN ONE (14:36)
[2018-04-19] MEDS ORDERED: SUCCINYLCHOLINE INJ 100 MG/5 ML SYR ONE (14:36)
[2018-04-19] MEDS ORDERED: BUP/EPI 0.5% 1:200,000 (SENSORCAINE) 30 ML VIAL ONE (14:42)
[2018-04-19] MEDS ORDERED: fentaNYL INJECTION 100 MCG/2 ML AMP ONE ×2 (14:42→16:03)
--- NOTE | 2018-04-19 15:51 | Progress Note-Post Operative ---
Post-Operative Progess Note Surgeon (s)/Derrick Hand (s) Surgeon LATASHA GONZÁLES MD Derrick Hand: clay fairchild FREIGHT DISPATCHER Pre-Operative Diagnosis symptomatic biliary dyskinesia Post-Operative Diagnosis same Procedure & Operative Findings Date of Procedure 04/19/18 Procedure Performed/Findings laparoscopic cholecystectomy Anesthesia Type GET Estimated Blood Loss Estimated blood loss (mL): minimal Specimens/Packing Specimens Removed gallbladder LATASHA GONZÁLES MD Apr 19, 2018 3:51 pm
[2018-04-19] MEDS ORDERED: SEVOFLURANE (ULTANE) 15 ML INHAL SOLN ONE (15:52)
[2018-04-19] MEDS ORDERED: HYDR-34 PO (15:54)
--- NOTE | 2018-04-19 15:58 | Discharge Inst-Surgical ---
D/C Lap Instructions-NIVIA New, Converted, or Re-Newed RX: RX on Chart Follow Up Appt in 2 weeks Activity as tolerated No driving for 24 hours No driving while on pain medications Incentive Spirometry use every 2 hours while awake Regular Diet Symptoms to Report: Fever over 101 degree F, Nausea/Vomiting Infection Signs and Symptoms to report: Increased redness, Foul odor of wound, Increased drainage Bathing instructions: May shower Operative Area Clean/Dry; Keep incision clean/dry If any problems/questions: Contact your physician or go to Emergency Room LATASHA GONZÁLES MD Apr 19, 2018 3:58 pm
[2018-04-19] MEDS ORDERED: KETOROLAC 30 MG/ML VIAL IVP ONE (16:00)
[2018-04-19] MEDS ORDERED: RT-ALBUTEROL SULF 2.5 MG/3 ML PRE-MIX VIAL ONE (16:04)
[2018-04-19] MEDS: fentaNYL INJECTION 100 MCG/2 ML AMP IVP PRN ×4 (16:05→16:25)
[2018-04-19] MEDS ORDERED: MEPERIDINE (DEMEROL) INJ 50 MG/ML ONE (16:11)
[2018-04-19] MEDS ORDERED: KETOROLAC 30 MG/ML VIAL ONE (16:12)
[2018-04-19] MEDS: MEPERIDINE (DEMEROL) INJ 50 MG/ML IVP PRN ×2 (16:15→16:30)
[2018-04-19 17:00] VITALS: BP 145/90
[2018-04-19 17:29] VITALS: BP 143/74
[2018-04-19 18:00] VITALS: BP 147/98
[2018-04-19 18:10] VITALS: BP 147/98
--- NOTE | 2018-04-19 22:15 | OPERATIVE REPORT ---
DATE OF SERVICE: 04/19/2018 ATTENDING PRIMARY CARE PHYSICIAN: Dr. Darling. PREOPERATIVE DIAGNOSIS: Symptomatic biliary dyskinesia. POSTOPERATIVE DIAGNOSIS: Symptomatic biliary dyskinesia. PROCEDURE: Laparoscopic cholecystectomy. SURGEON: Latasha Gonzáles MD. ANESTHESIA: General endotracheal. ESTIMATED BLOOD LOSS: Minimal. FINDINGS: A moderately distended gallbladder, no gallbladder wall inflammation. No gallstones. DISPOSITION: The patient tolerated the procedure well. INDICATIONS: The patient is a 52-year-old female who has had epigastric as well as right upper abdominal quadrant pain. She reports that this has been on an intermittent basis. She has a history of gastroesophageal reflux disease and was treated for this. However, she had recurrent episodes of discomfort. She was unsure if this is related to any types of foods. An ultrasound was performed, which did not show any abnormalities; however, HIDA scan did show a low ejection fraction of 14% as well as reproduction of symptoms upon administration of a Kinevac analogue. This is consistent with a symptomatic biliary dyskinesia. DESCRIPTION OF PROCEDURE: The patient was brought to the operating room, laid supine on the table. After adequate IV pain and sedative medications and general endotracheal intubation, the abdomen was prepped and draped in standard surgical fashion. A 0.5% Marcaine with epinephrine was then used to anesthetize the overlying skin in the left upper abdominal quadrant. A small transverse skin incision was made using a 15 blade. An 0 silk suture was applied to the medial aspect of the incision for retraction and a Veress needle was inserted with a low opening pressure of 0 mmHg and the abdomen was then insufflated to 15 mmHg pressure. The Veress needle was removed and a 5 mm Xcel trocar was placed followed by a 5 mm 45-degree angle laparoscope visualizing the peritoneal cavity. A 4-quadrant abdominal exploration was performed. There was mild gallbladder wall dilatation. There was no inflammation of the gallbladder. There was mild liver steatosis. The remainder of the omentum and stomach appeared normal. Under direct visualization, we then proceeded to place a supraumbilical 10 mm port after the skin and peritoneal lining were anesthetized using 0.5% Marcaine with epinephrine and a transverse skin incision was made using a 15 blade. In a similar manner, a right upper abdominal quadrant 5 mm port was placed. The patient was then placed in reverse Trendelenburg position as well as plane right side up, left side down. The gallbladder fundus was then retracted anteriorly and superiorly. The hepatoduodenal ligament was then opened using electrocautery as well as blunt dissection using a hook instrument. The entire critical view of safety was identified including the triangle of Calot as well as the cystic duct and artery as the only two structures going into the gallbladder as well as the cystic plate behind the proximal gallbladder. A timeout was then taken and the cystic duct and artery were then clipped proximally, distally and cut with EndoShears. The gallbladder was then dissected off the liver bed using electrocautery on the hook instrument with visualization of good hemostasis as well as no leaking ducts of Luschka. The gallbladder was removed through the 10 mm port site using an EndoCatch bag. The 10 mm fascia and peritoneal sites were then closed under direct visualization using a Barrett-Juanpablo device and an 0 Vicryl suture. The abdomen was desufflated and the remaining ports were removed. All skin incisions were closed using 4-0 Monocryl running subcuticular sutures. Wounds were then cleaned and covered with Dermabond. The patient tolerated the procedure well. We will start IV and oral pain medication as well as a clear liquid diet. Once she is tolerating clears, has good pain control with oral pain medications, ambulating well, we will discharge her home. Job ID: [id number] DocumentID: [id number] Dictated Date: 04/19/2018 16:07:02 Concrete Engineer Date: 04/19/2018 22:14:38 Dictated By: LATASHA GONZÁLES MD
== END 2018-04-19 18:10 | disposition home or self-care (01) ==
LOC: SDC 10:01
PROVIDERS: ATTEND Surgery
DX: K81.1 Chronic cholecystitis (principal); F17.210 Nicotine dependence, cigarettes, uncomplicated
CPT/HCPCS: 36415; 85025; 94664

== ENCOUNTER → 2018-07-04 | Outpatient (CLI) | payer BC ==
[~2018-07-04] MED LIST changes: +HYDR-34 PO
== END | disposition home or self-care (01) ==
LOC: PREOP 13:10
PROVIDERS: ATTEND Surgery
DX: Z01.818 Encounter for other preprocedural examination (principal)

== ENCOUNTER → 2018-07-23 | Outpatient (CLI) | payer BC ==
[~2018-07-23] MED LIST changes: +BARIUM SUSPENSION 2.1% (VANILLA SILQ) 450 ML PO ONE; +IOHEXOL 350 MG/ML 100 ML (OMNIPAQUE 350) VIAL IV ONE; +NS 250 ML (IVPB) BAG IV ONE
--- NOTE | 2018-07-23 11:53 | Diagnostic Imaging Report ---
PROCEDURE: CT abdomen and pelvis with contrast. TECHNIQUE: Multiple contiguous axial images were obtained through the abdomen and pelvis after administration of intravenous contrast. INDICATION: Followup previous abnormal CT scan which demonstrated multiple liver lesions. COMPARISON: Correlation is made with prior CT from 03/11/2018. FINDINGS: The lung bases remain clear. Diffuse low density throughout the liver is again seen consistent with hepatic steatosis. There has been a decrease in size of multiple previously seen low-density lesions throughout the liver. The dominant mass located in the inferior right lobe is now barely visible. A lesion in the medial right lobe inferiorly measures 14 mm compared with 16 mm. Lesion in the left lobe measures 13 mm compared with 14 mm. No new masses are seen. Gallbladder surgically absent. Pancreas and spleen are unremarkable. No adrenal mass is detected. Kidneys are unremarkable. Aorta is nonaneurysmal. No central retroperitoneal or mesenteric lymphadenopathy is seen. The small and large bowel loops are normal caliber. There is no ascites. Bladder and uterus are unremarkable. There are several small sclerotic lesions involving the iliac bones bilaterally, indeterminate but similar to prior CT. IMPRESSION: 1. Hepatic steatosis. 2. There has been improved appearance to the liver with decrease in size of the majority of low-density lesions throughout the liver. The dominant mass in the inferior right lobe previously biopsied is now barely visible. No new liver mass is seen. No abdominal or pelvic lymphadenopathy is identified. Dictated by: Dictated on workstation # [id number]
== END ==
LOC: RAD 10:07
PROVIDERS: ATTEND Internal Medicine
DX: K76.0 Fatty (change of) liver, not elsewhere classified (principal); R93.5 Abnormal findings on diagnostic imaging of other abdominal regions, including retroperitoneum
CPT/HCPCS: 74177

== ENCOUNTER 2018-08-30 12:20 | Outpatient (CLI) | payer BC ==
[~2018-08-30] VITALS: Ht 160 cm; Wt 70.3 kg
[~2018-08-30 12:20] MED LIST changes: -BARIUM SUSPENSION 2.1% (VANILLA SILQ) 450 ML PO ONE; -IOHEXOL 350 MG/ML 100 ML (OMNIPAQUE 350) VIAL IV ONE; -NS 250 ML (IVPB) BAG IV ONE
[2018-08-30] MEDS ORDERED: LACT1CAP40 PO (15:24)
[2018-08-30] MEDS ORDERED: OMEP40CA36 PO (15:24)
== END 2018-08-30 15:46 | disposition home or self-care (01) ==
LOC: PREOP 12:20
PROVIDERS: ATTEND Surgery
DX: Z01.818 Encounter for other preprocedural examination (principal)

== ENCOUNTER 2018-09-06 08:13 | Day surgery (SDC) | payer BC ==
[~2018-09-06] VITALS: Ht 160 cm; Wt 70.3 kg
[~2018-09-06 08:13] MED LIST changes: +LACT1CAP40 PO; +OMEP40CA36 PO
[2018-09-06 08:30] VITALS: BP 135/89
[2018-09-06] MEDS ORDERED: ceFAZolin INJECTION 1,000 MG in NS (IVPB) 50 ML IV ONE (08:45)
[2018-09-06] MEDS: LACTATED RINGERS 1,000 ML IV PRN ×2 (09:05→11:40)
[2018-09-06 09:12] LABS: BASOPHILS % (AUTO) 1 % (0-10); EOSINOPHILS # (AUTO) 0.1 10^3/uL (0.0-0.3); EOSINOPHILS % (AUTO) 3 % (0-10); HEMATOCRIT 41 % (35-52); HEMOGLOBIN 14.3 G/DL (11.5-16.0); LYMPHOCYTES # (AUTO) 1.6 X 10^3 (1.0-4.0); LYMPHOCYTES % (AUTO) 39 % (12-44); MEAN CORPUSCULAR HEMOGLOBIN 33 PG (25-34); MEAN CORPUSCULAR HGB CONC 35 G/DL (32-36); MEAN CORPUSCULAR VOLUME 96 FL (80-99); MEAN PLATELET VOLUME 10.5 FL (7.4-10.4); MONOCYTES # (AUTO) 0.7 X 10^3 (0.0-1.0); MONOCYTES % (AUTO) 16 % (0-12); NEUTROPHILS # (AUTO) 1.8 X 10^3 (1.8-7.8); NEUTROPHILS % (AUTO) 42 % (42-75); PLATELET COUNT 204 10^3/uL (130-400); RED BLOOD COUNT 4.29 10^6/uL (4.35-5.85); RED CELL DISTRIBUTION WIDTH 12.6 % (10.0-14.5); WHITE BLOOD COUNT 4.2 10^3/uL (4.3-11.0)
--- NOTE | 2018-09-06 09:44 | Progress Note-Pre Operative ---
Pre-Operative Progress Note H&P Reviewed The H&P was reviewed, patient examined and no changes noted. Date Seen by Provider: Sep 06, 2018 Time Seen by Provider: 09:30 Date H&P Reviewed: Sep 06, 2018 Time H&P Reviewed: 09:30 Pre-Operative Diagnosis: symptomatic type 2 paraesophageal hernia LATASHA GONZÁLES MD Sep 06, 2018 09:44
[2018-09-06] MEDS ORDERED: fentaNYL INJECTION 100 MCG/2 ML AMP ONE ×2 (10:00→11:21)
[2018-09-06] MEDS ORDERED: MIDAZOLAM 2 MG/2 ML (VERSED) VIAL ONE ×2 (10:00→10:35)
[2018-09-06] MEDS ORDERED: ONDANSETRON 4 MG/2 ML (SDV) Z0FRAN ONE (10:02)
[2018-09-06] MEDS ORDERED: ROCURONIUM 10 MG/ML 5 ML SYRINGE IV ONE ×2 (10:02→12:28)
[2018-09-06] MEDS ORDERED: LIDOCAINE PF 2% 5 ML (XYLOCAINE) VIAL ONE (10:02)
[2018-09-06] MEDS ORDERED: DEXAMETHASONE 10 MG/ML (DECADRON) 1 ML VIAL ONE (10:02)
[2018-09-06] MEDS ORDERED: SEVOFLURANE (ULTANE) 15 ML INHAL SOLN ONE ×8 (10:02→12:45)
[2018-09-06] MEDS ORDERED: proPOfol 200 MG/20 ML (DIPRIVAN) VIAL IV ONE (10:02)
[2018-09-06] MEDS ORDERED: BUP/EPI 0.5% 1:200,000 (SENSORCAINE) 30 ML VIAL ONE (10:38)
[2018-09-06] MEDS ORDERED: MIDAZOLAM 2 MG/2 ML (VERSED) VIAL IV ONE (10:45)
[2018-09-06] MEDS ORDERED: SUCCINYLCHOLINE INJ 100 MG/5 ML SYR ONE (12:33)
[2018-09-06] MEDS ORDERED: NEOSTIGMINE 1 MG/ML 5 ML SYRINGE ONE (12:39)
[2018-09-06] MEDS ORDERED: GLYCOPYRROLATE 0.2 MG/ML (ROBINUL) 2 ML VIAL ONE ×2 (12:39→13:10)
[2018-09-06] MEDS ORDERED: NS IV 1000 ML 1,000 ML IV SCH (12:42)
--- NOTE | 2018-09-06 12:42 | Progress Note-Post Operative ---
Post-Operative Progess Note Surgeon (s)/Refinery Operator Alkylation (s) Surgeon LATASHA GONZÁLES MD Refinery Operator Alkylation: clay fairchild INSULATION HOSEMAN Pre-Operative Diagnosis symptomatic type 2 paraesophageal hernia Post-Operative Diagnosis same Procedure & Operative Findings Date of Procedure 09/06/18 Procedure Performed/Findings laparoscopic hiatal hernia repair and duy fundoplication. Anesthesia Type GET Estimated Blood Loss Estimated blood loss (mL): minimal Specimens/Packing Specimens Removed none LATASHA GONZÁLES MD Sep 06, 2018 12:42
[2018-09-06] MEDS ORDERED: RT-ALBUTEROL SULF 2.5 MG/3 ML PRE-MIX VIAL INH SCH (12:45)
[2018-09-06] MEDS ORDERED: METOCLOPRAMIDE INJ 10 MG/2 ML (REGLAN) IV PRN (12:45)
[2018-09-06] MEDS ORDERED: diphenhydrAMINE 50 MG/ML INJ (BENADRYL) IVP PRN (12:45)
[2018-09-06] MEDS ORDERED: NALOXONE 0.4 MG/ML 1 ML (NARCAN) VIAL IV PRN (12:45)
[2018-09-06] MEDS ORDERED: diphenhydrAMINE 50 MG/ML INJ (BENADRYL) IV PRN (12:45)
[2018-09-06] MEDS ORDERED: ONDANSETRON 4 MG/2 ML (SDV) Z0FRAN IV PRN (12:45)
[2018-09-06] MEDS ORDERED: HYDR-34 PO (12:50)
--- NOTE | 2018-09-06 12:52 | Discharge Inst-Surgical ---
D/C Lap Instructions-NIVIA New, Converted, or Re-Newed RX: RX on Chart Follow Up Appt in 2 weeks Activity as tolerated No driving for 24 hours No driving while on pain medications Incentive Spirometry use every 2 hours while awake clear liquid diet 1 week then advance as tolerated. Symptoms to Report: Fever over 101 degree F, Nausea/Vomiting Infection Signs and Symptoms to report: Increased redness, Foul odor of wound, Increased drainage Bathing instructions: May shower Operative Area Clean/Dry; Keep incision clean/dry If any problems/questions: Contact your physician or go to Emergency Room LATASHA GONZÁLES MD Sep 06, 2018 12:52
[2018-09-06] MEDS ORDERED: fentaNYL INJECTION 100 MCG/2 ML AMP IVP ONE (13:15)
[2018-09-06] MEDS ORDERED: MEPERIDINE (DEMEROL) INJ 50 MG/ML IVP ONE (13:15)
[2018-09-06] MEDS ORDERED: morphine INJ 10 MG/ML 1ML (SYR OR VIAL) IVP ONE (13:15)
[2018-09-06] MEDS ORDERED: ONDANSETRON 4 MG/2 ML (SDV) Z0FRAN IVP PRN (13:15)
[2018-09-06] MEDS: metroNIDAZOLE 500MG/100ML IVPB 100 ML IV SCH ×2 (14:39→20:31)
[2018-09-06] MEDS: 1/2 NS W/KCL 20 MEQ/L 1,000 ML IV SCH ×2 (14:39→23:13)
[2018-09-06] MEDS: fentaNYL INJECTION 1,000 MCG in NS (IVPB) 80 ML IV SCH ×2 (14:40→14:54)
[2018-09-06 16:00] VITALS: BP 137/90
--- NOTE | 2018-09-06 17:22 | OPERATIVE REPORT ---
DATE OF SERVICE: 09/06/2018 ATTENDING PRIMARY CARE PHYSICIAN: Dr. Darling. PREOPERATIVE DIAGNOSIS: Symptomatic paraesophageal hernia. POSTOPERATIVE DIAGNOSIS: Symptomatic paraesophageal hernia. PROCEDURES PERFORMED: Laparoscopic paraesophageal hernia repair and Charlie fundoplication. SURGEON: Latasha Gonzáles MD. NET MAKING SUPERVISOR: Kee Hahn APRN. ANESTHESIA: General endotracheal. ESTIMATED BLOOD LOSS: Minimal. DISPOSITION: The patient tolerated the procedure well. INDICATIONS: The patient is a 53-year-old female known to us. She initially had epigastric pain as well as right upper abdominal quadrant pain on an intermittent basis. She had also reported history of gastroesophageal reflux disease. An ultrasound was performed which did not show any abnormalities; however, HIDA scan did show a low ejection fraction of 14% as well as reproduction of symptoms consistent with a biliary dyskinesia. She underwent a laparoscopic cholecystectomy in 04/18. She was seen in the office with a worsening reflux type of symptoms with epigastric burning sensation as well as crampy pain, especially when lying supine. She had an EGD done recently, which did show a reflux esophagitis, stage II as well as a moderate-sized paraesophageal hernia approximately 3 cm in size. She continued to have symptoms despite medical management. She underwent paraesophageal manometry study, which showed normal waveform contractions of the esophagus. DESCRIPTION OF PROCEDURE: The patient was brought to the operating room, laid supine on the table. After adequate IV pain and sedating medications and general endotracheal intubation, the abdomen was prepped and draped in standard surgical fashion. A 0.5% Marcaine with epinephrine was used to anesthetize the overlying skin in the left upper abdominal quadrant. A small transverse skin incision was made using a 15-blade. An #0 silk suture was applied to the medial aspect of the incision for retraction and a Veress needle inserted with a low opening pressure of 0 mmHg and the abdomen was then insufflated to 15 mmHg pressure. The Veress needle was removed and a 5 mm Xcel trocar was placed followed by a 5 mm 45 degree angle laparoscope visualizing the peritoneal cavity. A 4-quadrant abdominal exploration was performed. The liver appeared normal. There was a surgically absent gallbladder. Upon manipulation of the stomach, there was a type 2 paraesophageal hernia identified with a spontaneously reduced stomach. The defect was approximately 3 cm in size. Under direct visualization, we then proceeded to place a mid abdominal left of midline 10 mm port after the skin and peritoneal lining were anesthetized using 0.5% Marcaine with epinephrine and a transverse skin incision was made using 15-blade. In a similar fashion, a midabdominal right of midline 10 mm port was placed followed by a 5 mm right upper abdominal quadrant port. The epigastric region was then anesthetized and a skin incision made using 11-blade. A tract was then created through the abdominal layers using a trocar to a 5 mm port and a medium sized Nathansen liver retractor was placed and the left lobe of the liver retracted anteriorly and superiorly. The patient was then placed in steep reverse Trendelenburg position. The stomach was retracted inferiorly and the phrenoesophageal ligament was opened starting at the pars flaccida and then circumferentially around the phrenoesophageal ligament using a Sonicision as well as blunt dissection. We proceeded posteriorly until the left and right juliet of the diaphragm were identified and dissected out. We then proceeded to take down the short gastric vessels as well as the angle of His connective tissue fibers until the fundus of the stomach was freed. We then proceeded with repair of the juliet of the diaphragm posteriorly using interrupted 2-0 Surgidac sutures using the EndoStitch recreating the esophageal hiatus anatomy with no tension. We then proceeded with a 360-degree Charlie fundoplication using the fundus of the stomach, pulling the fundus of the stomach behind the esophagus and then proceeded with a gross measurement of the stomach being retracted towards the anterior abdominal wall with no resistance. We then proceeded with the wrap encompassing both sides of the stomach as well as the esophagus using 2-0 Surgidac interrupted sutures with visualization of good hemostasis. The liver retractor was then removed as well as the orogastric tube. The fascia and peritoneum to the 10 mm ports were then closed under direct visualization using a Barrett-Juanpablo device and #0 Vicryl suture. The abdomen was desufflated and remaining ports removed. All skin incisions were closed using 4-0 Monocryl running subcuticular sutures. Wounds were then cleaned and covered with Dermabond. The patient tolerated the procedure well. We will admit for 23 hours observation and proceed with pain control with TRANSFER CAR OPERATOR pump. We also proceed with DVT prophylaxis with early ambulation as well as calf SCDs. We will also start a clear liquid diet, which we will recommend that she continue for the next approximately 4 to 7 days and to slowly advance as tolerated and to avoid dry substances including lean meats, breads, crackers as well as raw vegetables for at least 2 weeks. Job ID: [id number] DocumentID: [id number] Dictated Date: 09/06/2018 13:02:47 Inflated Ball Molder Date: 09/06/2018 17:21:40 Dictated By: LATASHA GONZÁLES MD
[2018-09-06] MEDS ORDERED: ONDANSETRON 4 MG/2 ML (SDV) Z0FRAN IVP SCH (18:00)
[2018-09-06] MEDS ORDERED: METOCLOPRAMIDE INJ 10 MG/2 ML (REGLAN) IVP SCH (18:00)
[2018-09-06] MEDS: ceFAZolin 2 GM IV Premixed 50 ML IV SCH (18:27)
[2018-09-06 18:30] VITALS: BP 137/90
[2018-09-06] MEDS: RT-ALBUTEROL SULF 2.5 MG/3 ML PRE-MIX VIAL INH SCH ×2 (19:50→23:47)
[2018-09-06 20:00] VITALS: BP 134/87
[2018-09-07 00:26] VITALS: BP 145/83
[2018-09-07] MEDS: 1/2 NS W/KCL 20 MEQ/L 1,000 ML IV SCH (03:09)
[2018-09-07] MEDS: RT-ALBUTEROL SULF 2.5 MG/3 ML PRE-MIX VIAL INH SCH ×4 (03:21→14:44)
[2018-09-07] MEDS: ceFAZolin 2 GM IV Premixed 50 ML IV SCH ×2 (03:24→11:05)
[2018-09-07 03:49] VITALS: BP 119/73
[2018-09-07] MEDS: metroNIDAZOLE 500MG/100ML IVPB 100 ML IV SCH (05:08)
[2018-09-07 06:23] LABS: HEMOGLOBIN 12.2 G/DL (11.5-16.0); MEAN PLATELET VOLUME 10.8 FL (7.4-10.4); RED BLOOD COUNT 3.7 10^6/uL (4.35-5.85); RED CELL DISTRIBUTION WIDTH 12.2 % (10.0-14.5); WHITE BLOOD COUNT 8.4 10^3/uL (4.3-11.0)
[2018-09-07 06:38] LABS: BUN/CREATININE RATIO 8; CALCIUM 8.6 MG/DL (8.5-10.1); CARBON DIOXIDE 21 MMOL/L (21-32); CHLORIDE 107 MMOL/L (98-107); CREATININE SERUM 0.59 MG/DL (0.60-1.30); GFR ESTIMATED > 60; GLUCOSE 133 MG/DL (70-105); POTASSIUM 3.6 MMOL/L (3.6-5.0); SODIUM 139 MMOL/L (135-145)
[2018-09-07] MEDS ORDERED: PANTOPRAZOLE 40 MG (PROTONIX) TAB PO SCH (07:00)
[2018-09-07 08:00] VITALS: BP 131/75
[2018-09-07] MEDS ORDERED: ONDANSETRON 4 MG/2 ML (SDV) Z0FRAN ONE (08:42)
[2018-09-07] MEDS: oxyCODONE 5 MG/5 ML ORAL SOLN (roxiCODONE) 5 ML UDC PO PRN ×3 (08:46→18:02)
[2018-09-07] MEDS ORDERED: PANTOPRAZOLE 40 MG (PROTONIX) VIAL IV SCH (09:00)
[2018-09-07] MEDS ORDERED: SENNA W/DOCUSATE (SENOKOT S) TABLET PO SCH (09:00)
[2018-09-07 12:00] VITALS: BP 132/77
[2018-09-07] MEDS ORDERED: ONDANSETRON 4 MG/2 ML (SDV) Z0FRAN IVP PRN (12:45)
[2018-09-07] MEDS ORDERED: METOCLOPRAMIDE INJ 10 MG/2 ML (REGLAN) IVP PRN (12:45)
--- NOTE | 2018-09-07 13:11 | Progress Note (SOAP) ---
Subjective Date Seen by a Provider: Sep 07, 2018 Time Seen by a Provider: 12:00 Subjective/Events-last exam doing well. damaso diet. pain better controlled. no nausea/vomiting. Objective Exam Vital Signs Date Time Temp Pulse Resp B/P (MAP) Pulse Ox O2 Delivery O2 Flow Rate FiO2 09/07/18 10:44 94 Room Air 09/07/18 08:00 98.1 98 18 131/75 (93) 97 Room Air 09/07/18 06:53 94 Room Air 09/07/18 05:46 18 09/07/18 03:49 98.8 96 17 119/73 (88) 93 Room Air 09/07/18 03:21 93 Room Air 09/07/18 00:26 98.7 107 17 145/83 (103) 94 Room Air 09/06/18 20:00 98.4 110 17 134/87 (103) 98 Room Air 09/06/18 20:00 Room Air 09/06/18 19:50 98 Room Air 09/06/18 18:30 98.6 107 18 137/90 (106) 97 Room Air 09/06/18 18:00 16 09/06/18 16:00 98.6 107 18 137/90 (106) 97 Room Air 09/06/18 15:16 Room Air I & O 09/07/18 07:00 Intake Total 4380 ml Output Total 50 ml Balance 4330 ml Capillary Refill : General Appearance: No Apparent Distress HEENT: PERRL/EOMI Neck: Full Range of Motion Respiratory: Chest Non Tender, Lungs Clear, Normal Breath Sounds Cardiovascular: Regular Rate, Rhythm Gastrointestinal: normal bowel sounds, soft Extremity: Normal Capillary Refill Neurologic/Psychiatric: Alert, Oriented x3 Skin: Normal Color Lymphatic: No Adenopathy Results Lab Laboratory Tests 09/07/18 05:50: White Blood Count 8.4, Red Blood Count 3.70L, Hemoglobin 12.2, Hematocrit 36, Mean Corpuscular Volume 98, Mean Corpuscular Hemoglobin 33, Mean Corpuscular Hemoglobin Concent 34, Red Cell Distribution Width 12.2, Platelet Count 173, Mean Platelet Volume 10.8H, Sodium Level 139, Potassium Level 3.6, Chloride Level 107, Carbon Dioxide Level 21, Anion Gap 11, Blood Urea Nitrogen 5L, Creatinine 0.59L, Estimat Glomerular Filtration Rate > 60, BUN/Creatinine Ratio 8, Glucose Level 133H, Calcium Level 8.6 Assessment/Plan Assessment/Plan Assess & Plan/Chief Complaint s/p laparoscopic HH repair and duy. start PO pain meds. ambulate. slowly advance diet. home soon. Clinical Quality Measures DVT/VTE Risk/Contraindication: Risk Factor Score Per Nursin RFS Level Per Nursing on Admit: 2=Moderate LATASHA GONZÁLES MD Sep 07, 2018 13:11
--- NOTE | 2018-09-07 14:10 | Anesthesia-General Post-Op ---
General Patient Condition Mental Status/LOC: Same as Preop Cardiovascular: Satisfactory Nausea/Vomiting: Absent Respiratory: Satisfactory Pain: Controlled Complications: Absent Post Op Complications Complications None Follow Up Care/Instructions Patient Instructions None needed. Anesthesia/Patient Condition Patient Condition Patient is doing well, no complaints, stable vital signs, no apparent adverse anesthesia problems. No complications reported per nursing. JAMES QUINN CRNA Sep 07, 2018 14:10
[2018-09-07 16:00] VITALS: BP 122/74
[2018-09-07 19:00] VITALS: BP 122/74
== END 2018-09-07 19:00 | disposition home or self-care (01) ==
LOC: 4TH 08:13 → SDC 08:13 → 4TH 12:48 → UNDOADMIN 12:48 → 4TH 09-07 12:28 → SDC 09-07 19:00 → UNDODISIN 09-07 19:00
PROVIDERS: ATTEND Surgery
DX: K21.0 Gastro-esophageal reflux disease with esophagitis (principal); K44.9 Diaphragmatic hernia without obstruction or gangrene; F41.9 Anxiety disorder, unspecified; F17.210 Nicotine dependence, cigarettes, uncomplicated; Z79.899 Other long term (current) drug therapy
CPT/HCPCS: 36415; 80048; 85025; 85027; 87081; 94640; 94664; 94760

== ENCOUNTER 2018-09-27 06:51 | Day surgery (SDC) | payer BC ==
[~2018-09-27] VITALS: Ht 162.6 cm; Wt 70.3 kg
[2018-09-27] MEDS ORDERED: FAMOTIDINE 20MG/2ML IV (PEPCID) IVP ONE (07:00)
[2018-09-27] MEDS ORDERED: ONDANSETRON 4 MG/2 ML (SDV) Z0FRAN IVP ONE (07:00)
[2018-09-27] MEDS ORDERED: PANTOPRAZOLE 40 MG (PROTONIX) VIAL IV ONE (07:00)
[2018-09-27] MEDS ORDERED: NS IV 1000 ML 1,000 ML IV ONE (07:07)
[2018-09-27] MEDS ORDERED: ONDA4TAB10 (07:13)
--- NOTE | 2018-09-27 07:21 | ED Abdominal Pain ---
General Chief Complaint: Abdominal/GI Problems Stated Complaint: SOA/VOMITING BLOOD Nursing Triage Note: ARRIVED VIA AMB TO ROOM 09. STATES SINCE MONDAY SHE HAS FELT LIKE SOMETHING IS STUCK IN HER THROAT. COMPLAINS OF SOA WITH N/V. STATES SHE HAS PASSED BLOOD IN HER STOOL AND VOMITED BLOOD TODAY. Sepsis Screen: No Definite Risk Source of Information: Patient, Old Records Exam Limitations: No Limitations History of Present Illness Date Seen by Provider: Sep 27, 2018 Time Seen by Provider: 07:00 Initial Comments This 53-year-old woman presents to the emergency room with complaints of regurgitating blood, difficulty swallowing, shortness of air, and nausea since September 23. She had a paraesophageal hernia repair with Charlie fundoplication performed by Dr. Lubin on September 06. She reports taking her omeprazole only intermittently since then because it causes constipation. She also reports some blood in her stools in recent days. She feels like something is stuck in her esophagus. She is noted to be tachycardic on exam. Allergies and Home Medications Allergies Coded Allergies: Sulfa (Sulfonamide Antibiotics) (Verified Allergy, Unknown, 03/11/18) Home Medications Hydrocodone Bit/Acetaminophen 1 Ea Tablet, 1 EACH PO Q4H PRN for PAIN-MODERATE Prescribed by: LATASHA LUBIN on 09/06/18 1250 L. Rhamnosus GG/Inulin 1 Each Cap.sprink, 1 EACH PO DAILY PRN for DIARRHEA, ( Reported) Multivitamin 1 Each Tablet, 1 EACH PO DAILY, (Reported) Omeprazole 40 Mg Capsule.dr, 40 MG PO DAILY PRN for INDIGESTION, (Reported) Patient Home Medication List Home Medication List Reviewed: Yes Review of Systems Review of Systems Constitutional: no symptoms reported EENTM: No Symptoms Reported Respiratory: See HPI Cardiovascular: See HPI Gastrointestinal: See HPI Genitourinary: No Symptoms Reported Musculoskeletal: no symptoms reported Skin: no symptoms reported Psychiatric/Neurological: No Symptoms Reported Endocrine: No Symptoms Reported Hematologic/Lymphatic: See HPI Past Fxfqaqn-Jragez-Eijknk Hx Past Med/Social Hx: Reviewed and Corrections made Patient Social History Alcohol Beverage of Choice: Beer Type Used: Cigarettes Former Smoker, Quit: Aug 30, 2008 Recent Foreign Travel: No Contact w/Someone Who Travel: No Recent Infectious Disease Expo: No Recent Hopitalizations: No Immunizations Up To Date Date of Influenza Vaccine: Jul 18, 2018 Seasonal Allergies Seasonal Allergies: Yes Past Medical History Surgeries: Yes (ACL, HERNIA) Abdominal (paraesophageal hernia repair and Charlie fundoplication), Adenoidectomy, Gallbladder, Orthopedic, Tonsillectomy Respiratory: No Cardiac: No Neurological: No Reproductive Disorders: No Sexually Transmitted Disease: No HIV/AIDS: No Genitourinary: No Gastrointestinal: Yes (LIVER LESION-LIVER BX 03/13/18) Gastroesophageal Reflux, Liver Disease/Jaundice, Hiatal Hernia Musculoskeletal: Yes (right acl repair) Endocrine: No HEENT: No Loss of Vision: Bilateral Hearing Impairment: Denies Cancer: No Did You Recieve Any Treatments: No Psychosocial: Yes Anxiety, Depression Integumentary: No Blood Disorders: No Adverse Reaction/Blood Tranf: No (N/A) Family Medical History Heart Disease, Diabetes, Hypertension, Stroke Physical Exam Vital Signs Vital Signs - First Documented 09/27/18 06:58 Temp 98.0 Pulse 117 Resp 16 B/P (MAP) 102/76 (85) Pulse Ox 99 O2 Delivery Room Air Capillary Refill : Less Than 3 Seconds Height/Weight/BMI Height: 5'4.00" Weight: 155lbs. 0.0oz. [id number]; 27.5 BMI Method:Stated General Appearance: WD/WN, no apparent distress HEENT: PERRL/EOMI, normal ENT inspection, pharynx normal Neck: normal inspection Respiratory: lungs clear, normal breath sounds, no respiratory distress, no accessory muscle use Cardiovascular: no edema, no murmur, tachycardia Gastrointestinal: normal bowel sounds, soft, tenderness (epigastric) Extremities: normal inspection, no pedal edema Neurologic/Psychiatric: billboard erector II-XII nml as tested, no motor/sensory deficits, alert, normal mood/affect, oriented x 3 Skin: normal color, warm/dry Progress/Results/Core Measures Results/Orders Lab Results Laboratory Tests Test 09/27/18 07:25 09/27/18 07:53 Range/Units White Blood Count 11.8 H 4.3-11.0 10^3/uL Red Blood Count 4.35 4.35-5.85 10^6/uL Hemoglobin 14.3 11.5-16.0 G/DL Hematocrit 42 35-52 % Mean Corpuscular Volume 97 80-99 FL Mean Corpuscular Hemoglobin 33 25-34 PG Mean Corpuscular Hemoglobin Concent 34 32-36 G/DL Red Cell Distribution Width 12.3 10.0-14.5 % Platelet Count 281 130-400 10^3/uL Mean Platelet Volume 10.5 H 7.4-10.4 FL Neutrophils (%) (Auto) 77 H 42-75 % Lymphocytes (%) (Auto) 13 12-44 % Monocytes (%) (Auto) 9 0-12 % Eosinophils (%) (Auto) 2 0-10 % Basophils (%) (Auto) 0 0-10 % Neutrophils # (Auto) 9.1 H 1.8-7.8 X 10^3 Lymphocytes # (Auto) 1.5 1.0-4.0 X 10^3 Monocytes # (Auto) 1.0 0.0-1.0 X 10^3 Eosinophils # (Auto) 0.2 0.0-0.3 10^3/uL Basophils # (Auto) 0.0 0.0-0.1 10^3/uL Prothrombin Time 13.4 12.2-14.7 SEC INR Comment 1.0 0.8-1.4 Activated Partial Thromboplast Time 32 24-35 SEC Sodium Level 136 135-145 MMOL/L Potassium Level 3.8 3.6-5.0 MMOL/L Chloride Level 100 98-107 MMOL/L Carbon Dioxide Level 22 21-32 MMOL/L Anion Gap 14 5-14 MMOL/L Blood Urea Nitrogen 3 L 7-18 MG/DL Creatinine 0.65 0.60-1.30 MG/DL Estimat Glomerular Filtration Rate > 60 BUN/Creatinine Ratio 5 Glucose Level 122 H 70-105 MG/DL Calcium Level 9.6 8.5-10.1 MG/DL Corrected Calcium 9.5 8.5-10.1 MG/DL Total Bilirubin 0.6 0.1-1.0 MG/DL Aspartate Amino Transf (AST/SGOT) 48 H 5-34 U/L Alanine Aminotransferase (ALT/SGPT) 47 0-55 U/L Alkaline Phosphatase 114 40-136 U/L Total Protein 7.8 6.4-8.2 GM/DL Albumin 4.1 3.2-4.5 GM/DL Lipase 44 8-78 U/L Stool Occult Blood Immunoassay NEGATIVE NEGATIVE My Orders Orders - RAF NEVAREZ MD Cbc With Automated Diff (09/27/18 06:56) Comprehensive Metabolic Panel (09/27/18 06:56) Lipase (09/27/18 06:56) Protime With Inr (09/27/18 06:56) Partial Thromboplastin Time (09/27/18 06:56) Type And Screen (09/27/18 06:56) Saline Lock/Iv-Start (09/27/18 06:56) Ondansetron Injection (Zofran Injectio (09/27/18 07:00) Famotidine Injection (Pepcid Injection) (09/27/18 07:00) Pantoprazole Injection (Protonix Injecti (09/27/18 07:00) Ns Iv 1000 Ml (Sodium Chloride 0.9%) (09/27/18 07:07) Occult Blood Stool (09/27/18 08:58) Chest Pa/Lat (2 View) (09/27/18 08:58) Fentanyl Injection (Sublimaze Injection (09/27/18 10:00) Medications Given in ED Vital Signs/I&O 09/27/18 06:58 Temp 98.0 Pulse 117 Resp 16 B/P (MAP) 102/76 (85) Pulse Ox 99 O2 Delivery Room Air Blood Pressure Mean: 85 Progress Progress Note #1: Time: 07:20 Progress Note Patient was seen and examined. Zofran, Protonix 80 mg, and Pepcid 20 mg has been ordered along with an IV normal saline bolus. I will contact Dr. LUBIN or surgeon distribution field technician with more information after labs are resulted. Progress Note #2: Time: 10:[address] Lubin is unavailable and out of town. Case was discussed with Dr. Auguste. He recommends EGD. Patient is agreeable. Workup was otherwise unremarkable. Patient received fentanyl for pain. Patient is awaiting transfer to endoscopy at this time. Hemoccult stool was negative. Diagnostic Imaging Diagonstic Imaging: Xray Plain Films/CT/US/NM/MRI: chest Comments Chest x-ray viewed by me and report reviewed. See report below: NAME: ARTURO SANTANA [facility] REC#: [id number] PT STATUS: REG ER : 1965 PHYSICIAN: RAF NEVAREZ MD ADMIT DATE: 09/27/18/ER Draft Date of Exam:09/27/18 CHEST PA/LAT (2 VIEW) INDICATION: Shortness of air, sensation of something stuck in throat with hematemesis and blood in stool. FINDINGS: Lungs are clear. The heart and vessels normal. There is no effusion or pneumothorax. No radiodense pathological foreign body or clips at the gallbladder fossa. IMPRESSION: No acute finding radiographically apparent. Dictated on workstation # [id number] Dict: 09/27/18912 Trans: 09/27/18 09 [id number] Interpreted by: MAGGY CASE Departure Communication (Admissions) Time/Spoke to Admitting Phy: 08:[address] Auguste who presented to the ER to assess the patient personally. Impression Primary Impression: Hematemesis Qualified Codes: K92.0 - Hematemesis Additional Impressions: Dysphagia Qualified Codes: R13.10 - Dysphagia, unspecified Postoperative pain Disposition: ADMITTED INPATIENT Condition: Improved Admissions Decision to Admit Reason: Admit from ER (General) Decision to Admit/Date: Sep 27, 2018 Time/Decision to Admit Time: 08:55 Departure-Patient Inst. Referrals: MACRINA MANE MD (PCP/Family) Primary Care Physician Copy Copies To 1: LATASHA LUBIN MD Copies To 2: MACRINA MANE MD, JOSHUA T MD Sep 27, 2018 07:21
[2018-09-27 07:43] LABS: BASOPHILS % (AUTO) 0 % (0-10); EOSINOPHILS # (AUTO) 0.2 10^3/uL (0.0-0.3); EOSINOPHILS % (AUTO) 2 % (0-10); HEMATOCRIT 42 % (35-52); HEMOGLOBIN 14.3 G/DL (11.5-16.0); LYMPHOCYTES # (AUTO) 1.5 X 10^3 (1.0-4.0); LYMPHOCYTES % (AUTO) 13 % (12-44); MEAN CORPUSCULAR HEMOGLOBIN 33 PG (25-34); MEAN CORPUSCULAR HGB CONC 34 G/DL (32-36); MEAN CORPUSCULAR VOLUME 97 FL (80-99); MEAN PLATELET VOLUME 10.5 FL (7.4-10.4); MONOCYTES % (AUTO) 9 % (0-12); NEUTROPHILS # (AUTO) 9.1 X 10^3 (1.8-7.8); NEUTROPHILS % (AUTO) 77 % (42-75); PLATELET COUNT 281 10^3/uL (130-400); RED BLOOD COUNT 4.35 10^6/uL (4.35-5.85); RED CELL DISTRIBUTION WIDTH 12.3 % (10.0-14.5); WHITE BLOOD COUNT 11.8 10^3/uL (4.3-11.0)
[2018-09-27 07:56] LABS: PROTHROMBIN TIME PATIENT 13.4 SEC (12.2-14.7)
[2018-09-27 08:02] LABS: ALANINE AMINOTRANSFERASE 47 U/L (0-55); ALBUMIN 4.1 GM/DL (3.2-4.5); ALKALINE PHOSPHATASE 114 U/L (40-136); BILIRUBIN,TOTAL 0.6 MG/DL (0.1-1.0); BUN/CREATININE RATIO 5; CALCIUM 9.6 MG/DL (8.5-10.1); CARBON DIOXIDE 22 MMOL/L (21-32); CHLORIDE 100 MMOL/L (98-107); CREATININE SERUM 0.65 MG/DL (0.60-1.30); GFR ESTIMATED > 60; GLUCOSE 122 MG/DL (70-105); LIPASE 44 U/L (8-78); POTASSIUM 3.8 MMOL/L (3.6-5.0); SODIUM 136 MMOL/L (135-145); TOTAL PROTEIN 7.8 GM/DL (6.4-8.2)
--- NOTE | 2018-09-27 08:39 | NUR ---
NOTIFIED OF BUSY ER ET WOULD BE IN TO TALK TO HER SOON HE COULD. WARM BLANKET AND REMOTE GIVEN.
--- NOTE | 2018-09-27 08:54 | NUR ---
IN TALKING TO PT AT THIS TIME.
--- NOTE | 2018-09-27 09:20 | Diagnostic Imaging Report ---
INDICATION: Shortness of air, sensation of something stuck in throat with hematemesis and blood in stool. FINDINGS: Lungs are clear. The heart and vessels normal. There is no effusion or pneumothorax. No radiodense pathological foreign body or clips at the gallbladder fossa. IMPRESSION: No acute finding radiographically apparent. Dictated by: Dictated on workstation # [id number]
--- NOTE | 2018-09-27 09:35 | NUR ---
PT COMPLAINS OF PAIN IN HER ABD WHEN SHE COUGHS. DR NEVAREZ NOTIFIED.
--- NOTE | 2018-09-27 09:39 | NUR ---
DR CHIU IN ROOM WITH PT AT THIS TIME.
[2018-09-27] MEDS ORDERED: fentaNYL INJECTION 100 MCG/2 ML AMP IVP ONE (10:00)
--- NOTE | 2018-09-27 10:01 | Consultation ---
History of Present Illness History of Present Illness Patient Consulted On(cinthia/time) 09/27/18 09:58 Time Seen by Provider: 09:31 History of Present Illness Surgery asked to consult regarding Hematemesis. HPI per ED: This 53-year-old woman presents to the emergency room with complaints of regurgitating blood, difficulty swallowing, shortness of air, and nausea since September 23. She had a paraesophageal hernia repair with Charlie fundoplication performed by Dr. Gonzáles on September 06. She reports taking her omeprazole only intermittently since then because it causes constipation. She also reports some blood in her stools in recent days. She feels like something is stuck in her esophagus. She is noted to be tachycardic on exam. Pt had a Lap Charlie and Hiatal hernia repair on September 06 and has been doing relatively ok since then. She did have episode of hematemesis 3 days after procedure but was told by her doctor this can be normal. After that she was doing ok but only taking liquids because she was afraid to eat solid food. She thinks this problem began Qian night and then got progressively worse yesterday and into today. She states "it feels like something is stuck down there". It is hard to swallow. She only had " tiny sandwiches" qian night. Pain is described as dull ache just below xyphoid, maybe a 4 out of 10. Pain does not radiate anywhere. Allergies and Home Medications Allergies Coded Allergies: Sulfa (Sulfonamide Antibiotics) (Verified Allergy, Unknown, 03/11/18) Home Medications Hydrocodone Bit/Acetaminophen 1 Ea Tablet, 1 EACH PO Q4H PRN for PAIN-MODERATE Prescribed by: LATASHA GONZÁLES on 09/06/18 1250 L. Rhamnosus GG/Inulin 1 Each Cap.sprink, 1 EACH PO DAILY PRN for DIARRHEA, ( Reported) Multivitamin 1 Each Tablet, 1 EACH PO DAILY, (Reported) Omeprazole 40 Mg Capsule.dr, 40 MG PO DAILY PRN for INDIGESTION, (Reported) Patient Home Medication List Home Medication List Reviewed: Yes Past Kxjauxa-Igabjc-Gcymgt Hx Patient Social History Alcohol Use: Occasionally Uses Recreational Drug Use: No Smoking Status: Never a Smoker Former Smoker, Quit: Aug 30, 2008 Type Used: Cigarettes Recent Foreign Travel: No Contact w/Someone Who Travel: No Recent Infectious Disease Expo: No Recent Hopitalizations: No Immunizations Up To Date Date of Influenza Vaccine: Jul 18, 2018 Seasonal Allergies Seasonal Allergies: Yes Surgeries History of Surgeries: Yes (ACL, HERNIA) Surgeries: Abdominal (paraesophageal hernia repair and Charlie fundoplication), Adenoidectomy, Gallbladder, Orthopedic, Tonsillectomy Respiratory History of Respiratory Disorde: No Cardiovascular History of Cardiac Disorders: No Neurological History of Neurological Disord: No Reproductive System Hx Reproductive Disorders: No Sexually Transmitted Disease: No HIV/AIDS: No Genitourinary History of Genitourinary Disor: No Gastrointestinal History of Gastrointestinal Di: Yes (LIVER LESION-LIVER BX 03/13/18) Gastrointestinal Disorders: Gastroesophageal Reflux, Liver Disease/Jaundice, Hiatal Hernia Musculoskeletal History of Musculoskeletal Dis: Yes (right acl repair) Endocrine History of Endocrine Disorders: No HEENT History of HEENT Disorders: No Loss of Vision: Bilateral Hearing Impairment: Denies Cancer History of Cancer: No Psychosocial History of Psychiatric Problem: Yes Behavioral Health Disorders: Anxiety, Depression Integumentary History of Skin or Integumenta: No Blood Transfusions History of Blood Disorders: No Adverse Reaction to a Blood Tr: No (N/A) Family Medical History Significant Family History: Heart Disease, Diabetes, Hypertension, Stroke Review of Systems-General Constitutional: No chills, No diaphoresis; weakness EENTM: No blurred vision, No eye pain, No mouth pain, No mouth swelling, No epistaxis, No throat swelling Respiratory: cough; No dyspnea on exertion, No hemoptysis, No short of breath Gastrointestinal: abdominal pain, diarrhea, dysphagia, hematemesis; No jaundice Genitourinary: No dysuria, No frequency, No hematuria Musculoskeletal: No back pain, No joint pain, No muscle pain, No muscle stiffness Skin: No change in color, No change in hair/nails Psychiatric/Neurological: Denies Anxiety, Denies Depressed, Denies Seizure, Denies Tingling, Denies Tremors Other pt denies any abnormal bruising or bleeding, no history of heat or cold intolerance Physical Exam-General Problems Physical Exam Vital Signs Vital Signs - First Documented 09/27/18 06:58 Temp 98.0 Pulse 117 Resp 16 B/P (MAP) 102/76 (85) Pulse Ox 99 O2 Delivery Room Air Capillary Refill : Less Than 3 Seconds General Appearance: WD/WN, mild distress Eyes: Bilateral Eye PERRL, Bilateral Eye EOMI HEENT: pharynx normal; No scleral icterus (R), No scleral icterus (L) Neck: non-tender, full range of motion, supple Respiratory: chest non-tender, lungs clear, normal breath sounds, no respiratory distress Cardiovascular: regular rate, rhythm, no edema, no murmur Gastrointestinal: normal bowel sounds, non tender, soft, no organomegaly, no pulsatile mass Back: no CVA tenderness, no vertebral tenderness Extremities: normal range of motion, non-tender, normal inspection, no pedal edema, no calf tenderness, normal capillary refill Neurologic/Psychiatric: field support specialist II-XII nml as tested, no motor/sensory deficits, alert, normal mood/affect, oriented x 3 Skin: normal color, warm/dry Lymphatic: no adenopathy (neck, axilla or groin) Data Review Labs Laboratory Tests 09/27/18 07:25: White Blood Count 11.8H, Red Blood Count 4.35, Hemoglobin 14.3, Hematocrit 42, Mean Corpuscular Volume 97, Mean Corpuscular Hemoglobin 33, Mean Corpuscular Hemoglobin Concent 34, Red Cell Distribution Width 12.3, Platelet Count 281, Mean Platelet Volume 10.5H, Neutrophils (%) (Auto) 77H, Lymphocytes (%) (Auto) 13, Monocytes (%) (Auto) 9, Eosinophils (%) (Auto) 2, Basophils (%) (Auto) 0, Neutrophils # (Auto) 9.1H, Lymphocytes # (Auto) 1.5, Monocytes # (Auto) 1.0, Eosinophils # (Auto) 0.2, Basophils # (Auto) 0.0, Prothrombin Time 13.4, INR Comment 1.0, Activated Partial Thromboplast Time 32, Sodium Level 136, Potassium Level 3.8, Chloride Level 100, Carbon Dioxide Level 22, Anion Gap 14, Blood Urea Nitrogen 3L, Creatinine 0.65, Estimat Glomerular Filtration Rate > 60 , BUN/Creatinine Ratio 5, Glucose Level 122H, Calcium Level 9.6, Corrected Calcium 9.5, Total Bilirubin 0.6, Aspartate Amino Transf (AST/SGOT) 48H, Alanine Aminotransferase (ALT/SGPT) 47, Alkaline Phosphatase 114, Total Protein 7.8, Albumin 4.1, Lipase 44 09/27/18 07:53: Stool Occult Blood Immunoassay NEGATIVE Assessment/Plan Assessment/Plan Assessment/Plan Hematemesis Dysphagia Pt recently had a Hiatal hernia repair with Lap Charlie. Now because of the hematemesis and dysphagia she needs an EGD. Want to rule out any food bolus being stuck and see if we can determine the cause of hematemesis. Pt has had a previous EGD, but not since surgery. Risks and complications discussed with pt; including but not limited to pain, bleeding, infection and even esophageal rupture. All questions answered to her and her husbands satisfaction. BACILIO CHIU DO Sep 27, 2018 10:01
[2018-09-27] MEDS ORDERED: LACTATED RINGERS 1,000 ML IV ONE (10:38)
[2018-09-27] MEDS ORDERED: LACTATED RINGERS 1,000 ML IV SCH (11:00)
[2018-09-27] MEDS ORDERED: HURRICAINE EXT TUBE (BENZOCAINE) XX ONE (11:00)
[2018-09-27] MEDS ORDERED: MIDAZOLAM 2 MG/2 ML (VERSED) VIAL ONE (11:15)
[2018-09-27] MEDS ORDERED: PROPOFOL INJECTION 50 ML IV ONE (11:15)
[2018-09-27] MEDS ORDERED: ONDANSETRON 4 MG/2 ML (SDV) Z0FRAN ONE (11:25)
--- NOTE | 2018-09-27 11:50 | Progress Note-Post Operative ---
Post-Operative Progess Note Surgeon (s)/Prototype Fabricator (s) Surgeon BACILIO CHIU DO Prototype Fabricator: none Pre-Operative Diagnosis Hematemesis, Dysphagia Post-Operative Diagnosis Same plus Gastritis Gastric polyp ?? Yeast infection in esophagus Procedure & Operative Findings Date of Procedure 09/27/18 Procedure Performed/Findings EGD with biopsy EGD with removal of gastric polyp Anesthesia Type IV sedation by MARKET RESEARCH SPECIALIST Estimated Blood Loss Estimated blood loss (mL): scant Specimens/Packing Specimens Removed bx of antrum Gastric polyp from body of stomach brushings of esophagus BACILIO CHIU DO Sep 27, 2018 11:50
--- NOTE | 2018-09-27 11:54 | Endoscopy Discharge Instruct ---
Endo Procedure/Findings Findings 1.: Gastritis 2.: Polyp Discharge Instructions - Activity: You might feel a little sleepy until tomorrow. This is due to the medicine you received to relax you. Until tomorrow, you should: NOT drive a car, operate machinery or power tools. NOT drink any alcoholic beverages. NOT make any important decisions or sign importortant papers. Do not return to work until tomorrow, unless otherwise instructed. Resume previous activities tomorrow. Diet: Start by taking liquids. If you tolerate liquids, advance to soft food. Make sure you are taking your Prilosec daily Make an appointment for one week. Instructions: 1.: No ASA/NSAIDS for 1 week, EGD in 6-8 weeks Notify Physician - If you experience excessive bleeding, unusual abdominal pain, fever, or chest pain, contact your doctor immediately. Follow-Up: - I have received and understand the above instructions and will call my doctor if I have any further questions. Patient Signature Date Nurse Signature Other (Relationship) BACILIO CHIU DO Sep 27, 2018 11:54
[2018-09-27 12:30] VITALS: BP 147/92
[2018-09-27 12:47] VITALS: BP 147/92
--- NOTE | 2018-09-27 14:26 | Anesthesia-General Post-Op ---
MAC Patient Condition Mental Status/LOC: Same as Preop Cardiovascular: Satisfactory Nausea/Vomiting: Absent Respiratory: Satisfactory Pain: Controlled Complications: Absent Post Op Complications Complications None Follow Up Care/Instructions Patient Instructions None needed. Anesthesiology Discharge Order Discharge Order Patient is doing well, no complaints, stable vital signs, no apparent adverse anesthesia problems. No complications reported per nursing. JAMES QUINN CRNA Sep 27, 2018 14:26
--- NOTE | 2018-09-29 00:01 | OPERATIVE REPORT ---
DATE OF SERVICE: 09/27/2018 PREOPERATIVE DIAGNOSES: Hematemesis and dysphagia. POSTOPERATIVE DIAGNOSES: 1. Gastritis. 2. Gastric polyp. 3. Possible yeast in the esophagus. PROCEDURE: EGD with biopsy as well as EGD with removal of gastric polyp and then brushing of the esophagus. SURGEON: Thomas Auguste DO. EVENT DECORATOR: None. ANESTHESIA: IV sedation by the ORGAN FIXER. SPECIMEN: Antral biopsy. One biopsy of gastric polyp and then brushing of the esophagus. BLOOD LOSS: Scant. FLUIDS: Per anesthesia. POSTOPERATIVE CONDITION: Stable. INDICATION FOR PROCEDURE: The patient is a 53-year-old female who had a laparoscopic hiatal hernia repair as well as Charlie fundoplication on 09/06/2018. She had been on liquids, finally tried some more solid food and felt like there was something stuck and then she vomited up some blood and she is very concerned, felt like she could not eat and came to the emergency room. Elected to do an EGD to make sure there were no problems with her procedure. PROCEDURE NOTE: After informed consent was obtained, the patient was brought to the endoscopy suite. She was placed in the bed in left lateral decubitus position. She was administered IV sedation by the ORGAN FIXER who then monitored her vitals the entire time, heart rate, pressure and pulse ox and the scope was inserted down the mouth through the esophagus and on the way down the esophagus, saw some whitish plaque almost looked like a yeast. Elected to push pass this, able to see the GE junction pushed into the stomach at the antrum, looked like there was a little bit of gastritis, did a biopsy of the antrum. Push into the duodenum. Duodenum looked okay and then pulled back look at the upper portion of the stomach. Tried to retroflex, it was very hard because of her wrap. Saw a polyp and then elected to remove this polyp. Able to get in one bite, removed the entire thing. Looked like there was a couple other polyps in there as well. There were no other obvious signs of bleeding. Took a picture of the GE junction looked okay, had been able to push the scope easily passed this, so did not feel like the wrap was too tight or there any that was causing any problems in the esophagus where we saw this whitish plaque. Elected to do some brushings. Brushed the esophagus. This was sent to pathology. I then pulled the scope up, the rest of the esophagus out the mouth. The patient tolerated the procedure. She was recovered in the endoscopy suite. Job ID: [id number] DocumentID: [id number] Dictated Date: 09/28/2018 11:46:44 Continuous Improvement Analyst Date: 09/29/2018 00:00:29 Dictated By: THOMAS AUGUSTE DO
== END 2018-09-27 12:50 | disposition home or self-care (01) ==
LOC: EDUNIT# 06:51 → ER 06:53 → SDC 09:54
PROVIDERS: ATTEND Surgery
DX: K29.50 Unspecified chronic gastritis without bleeding (principal); K31.7 Polyp of stomach and duodenum; K21.9 Gastro-esophageal reflux disease without esophagitis; Z87.891 Personal history of nicotine dependence
CPT/HCPCS: 36415; 71046; 80053; 82274; 83690; 85025; 85610; 85730; 86850; 86900; 86901; 87101; 87106; 96361; 96374; 96375

== ENCOUNTER 2018-11-30 00:47 | Emergency (ER) | payer BC ==
[~2018-11-30] VITALS: Ht 162.6 cm; Wt 70.3 kg
[~2018-11-30 00:47] MED LIST changes: +ONDA4TAB10
[2018-11-30 01:30] LABS: BASOPHILS % (AUTO) 1 % (0-10); EOSINOPHILS # (AUTO) 0.1 10^3/uL (0.0-0.3); EOSINOPHILS % (AUTO) 2 % (0-10); HEMATOCRIT 42 % (35-52); HEMOGLOBIN 14.2 G/DL (11.5-16.0); LYMPHOCYTES # (AUTO) 3.3 X 10^3 (1.0-4.0); LYMPHOCYTES % (AUTO) 65 % (12-44); MEAN CORPUSCULAR HEMOGLOBIN 32 PG (25-34); MEAN CORPUSCULAR HGB CONC 34 G/DL (32-36); MEAN CORPUSCULAR VOLUME 95 FL (80-99); MEAN PLATELET VOLUME 9.9 FL (7.4-10.4); MONOCYTES # (AUTO) 0.4 X 10^3 (0.0-1.0); MONOCYTES % (AUTO) 9 % (0-12); NEUTROPHILS # (AUTO) 1.2 X 10^3 (1.8-7.8); NEUTROPHILS % (AUTO) 23 % (42-75); PLATELET COUNT 198 10^3/uL (130-400); RED CELL DISTRIBUTION WIDTH 13.7 % (10.0-14.5); WHITE BLOOD COUNT 5.1 10^3/uL (4.3-11.0)
[2018-11-30] MEDS ORDERED: KETOROLAC 30 MG/ML VIAL IVP ONE (01:30)
[2018-11-30 01:34] LABS: INR 0.9 (0.8-1.4); PROTHROMBIN TIME PATIENT 12.3 SEC (12.2-14.7)
[2018-11-30 01:42] LABS: ALANINE AMINOTRANSFERASE 24 U/L (0-55); ALBUMIN 4.5 GM/DL (3.2-4.5); ALKALINE PHOSPHATASE 89 U/L (40-136); AMYLASE 28 U/L (25-125); BILIRUBIN,TOTAL 0.5 MG/DL (0.1-1.0); BUN/CREATININE RATIO 6; CALCIUM 9.1 MG/DL (8.5-10.1); CARBON DIOXIDE 24 MMOL/L (21-32); CHLORIDE 104 MMOL/L (98-107); CREATINE KINASE 65 U/L (29-168); CREATININE SERUM 0.68 MG/DL (0.60-1.30); GFR ESTIMATED > 60; GLUCOSE 89 MG/DL (70-105); LIPASE 55 U/L (8-78); MAGNESIUM 2.3 MG/DL (1.8-2.4); POTASSIUM 3.6 MMOL/L (3.6-5.0); SODIUM 142 MMOL/L (135-145); TOTAL PROTEIN 7.6 GM/DL (6.4-8.2)
[2018-11-30 01:49] LABS: CREATINE KINASE MB 0.9 NG/ML (<6.6); MYOGLOBIN SERUM 22.3 NG/ML (10.0-92.0)
[2018-11-30 02:08] LABS: BILIRUBIN,URINE NEGATIVE (NEGATIVE); CLARITY,URINE CLEAR; COLOR,URINE YELLOW; GLUCOSE, URINE (UA) NEGATIVE (NEGATIVE); KETONES,URINE NEGATIVE (NEGATIVE); LEUKOCYTE ESTERASE ,URINE NEGATIVE (NEGATIVE); NITRITE,URINE NEGATIVE (NEGATIVE); PH,URINE 6.5 (5-9); PROTEIN,URINE NEGATIVE (NEGATIVE); UROBILINOGEN,URINE NORMAL (NORMAL)
[2018-11-30 02:18] LABS: BACTERIA,URINE TRACE /HPF; SQUAMOUS EPITHELIAL CELL,UR 0-2 /HPF; WBC,URINE 0-2 /HPF
[2018-11-30 02:24] LABS: AMPHETAMINE SCREEN, URINE NEGATIVE (NEGATIVE); BARBITURATE SCREEN URINE NEGATIVE (NEGATIVE); BENZODIAZEPINES SCREEN URINE NEGATIVE (NEGATIVE); CANNABINOID SCREEN, URINE NEGATIVE (NEGATIVE); COCAINE SCREEN URINE NEGATIVE (NEGATIVE); METHADONE STAT NEGATIVE (NEGATIVE); METHAMPHETAMINE SCREEN URINE S NEGATIVE (NEGATIVE); OPIATE SCREEN URINE NEGATIVE (NEGATIVE); OXYCODONE STAT NEGATIVE (NEGATIVE); PROPOXYPHENE STAT NEGATIVE (NEGATIVE); TRICYCLIC ANTIDEPRESSANTS SCRE NEGATIVE (NEGATIVE)
--- NOTE | 2018-11-30 02:43 | ED General ---
General Chief Complaint: Chest Pain Stated Complaint: CP,DIARRHEA,VOMITING Source of Information: Patient History of Present Illness Date Seen by Provider: Nov 30, 2018 Time Seen by Provider: 01:00 Initial Comments PT ARRIVES VIA POV FROM HOME C/O CHEST PAIN X 3 WEEKS PAIN COMES AND GOES, NOTHING WORSENS OR IMPROVES PAIN RATES PAIN 5/10 PAIN OCCASIONALLY RADIATES TO BACK HAS NOT SOUGHT CARE UNTIL TODAY STATES TONIGHT SHE "COULDN'T SLEEP, COULDN'T BREATHE" --TOOK PEPTO BISMOL AT 2330 WITHOUT RELIEF NO SHORTNESS OF BREATH NOW HAS HAD ONGOING NAUSEA/VOMITING/DIARRHEA X 1 WEEK PT HAD HIATAL HERNIA REPAIR IN 09/06/[address] GONZÁLES. PT HAD EGD BY DR. CHIU FOR REPORTED HEMATEMESIS, DX WITH GASTRITIS. PT TAKES OMEPRAZOLE DAILY PT SAW DR. MANE LAST MONDAY FOR ROUTINE FOLLOW UP AFTER SURGERY IN SEPTEMBER. PT STATES SHE VOMITED X 1 YESTERDAY, NO VOMITING TODAY AND NO NAUSEA NOW. HAS HAD ALOT OF DIARRHEA AND FLATUS FOR OVER A WEEK. BUT HAS HAD ONGOING DIARRHEA SINCE SHE HAD CHOLECYSTECTOMY 04/2018 HAD DIARRHEA X 5 YESTERDAY AND X 5 TODAY WELL. HAD 1 BLACK / TARRY STOOL LAST WEEK, BUT TAKES PEPTO BISMOL SEVERAL TIMES A WEEK PT HAS ZOFRAN AT HOME, BUT HAS NOT TAKEN ANY TODAY NO FEVER NO COUGH/URI SYMPTOMS STATES SHE ALWAYS HAS SWEATS--IS PERIMENOPAUSAL NO SWELLING IN LEGS/ FEET OR PAIN IN CALVES PT STATES SHE IS "ALWAYS ANXIOUS ABOUT MY HEART" STATES HER DAD HAD CABG IN HIS 60'S, RECENTLY OF LIVER CANCER. MOM OF CHF IN HER 60'S WELL. GRANDFATHER HAD AORTIC ANEURYSM. NO DEATHS OR HEART DISEASE LESS THAN 50 YEARS OF AGE IN FAMILY PT HAS RX FOR XANAX, BUT DOES NOT TAKE IT--STATES SHE IS AFRAID OF NOT WAKING UP IF SHE TAKES IT PT STATES SHE HAS HAD " A COUPLE OF BEERS" TONIGHT PT HAS BEEN EATING NORMALLY. PCP: DR. MANE SURGEON: DR. GONZÁLES Allergies and Home Medications Allergies Coded Allergies: Sulfa (Sulfonamide Antibiotics) (Verified Allergy, Unknown, 03/11/18) Home Medications Hydrocodone Bit/Acetaminophen 1 Ea Tablet, 1 EACH PO Q4H PRN for PAIN-MODERATE Prescribed by: LATASHA GONZÁLES on 09/06/18 1250 L. Rhamnosus GG/Inulin 1 Each Cap.sprink, 1 EACH PO DAILY PRN for DIARRHEA, ( Reported) Multivitamin 1 Each Tablet, 1 EACH PO DAILY, (Reported) Omeprazole 40 Mg Capsule.dr, 40 MG PO DAILY PRN for INDIGESTION, (Reported) Patient Home Medication List Home Medication List Reviewed: Yes Review of Systems Review of Systems Constitutional: no symptoms reported Respiratory: see HPI, short of breath Cardiovascular: see HPI, chest pain Gastrointestinal: see HPI, diarrhea, nausea, vomiting Genitourinary: no symptoms reported Musculoskeletal: see HPI, back pain Skin: no symptoms reported Psychiatric/Neurological: See HPI, Anxiety Hematologic/Lymphatic: No Symptoms Reported Immunological/Allergic: no symptoms reported Past Bvqexaj-Qtcdiz-Irtkqf Hx Patient Social History Alcohol Use: Occasionally Uses Alcohol Beverage of Choice: Beer Recreational Drug Use: No Smoking Status: Former Smoker Type Used: Cigarettes Former Smoker, Quit: Aug 30, 2008 Recent Foreign Travel: No Contact w/Someone Who Travel: No Recent Hopitalizations: No Immunizations Up To Date Date of Influenza Vaccine: Jul 18, 2018 Seasonal Allergies Seasonal Allergies: Yes Past Medical History Surgeries: Yes (RIGHT ACL REPAIR; HIATAL HERNIA REPAIR 09/2018; EGD'S-LAST ONE 09/29/18; ) Abdominal, Adenoidectomy, Gallbladder, Orthopedic, Tonsillectomy Respiratory: No Cardiac: No Neurological: No Reproductive Disorders: No Sexually Transmitted Disease: No HIV/AIDS: No Genitourinary: No Gastrointestinal: Yes (LIVER LESION-LIVER BX 03/13/18; CHRONIC DIARRHEA SINCE TAVON 04/2018; HIATAL HERNIA REPAIR 09/2018) Gastroesophageal Reflux, Liver Disease/Jaundice, Chronic Diarrhea, Esophagitis, Hiatal Hernia Musculoskeletal: Yes (RIGHT ACL REPAIR) Endocrine: No HEENT: No Loss of Vision: Bilateral Hearing Impairment: Denies Cancer: No Did You Recieve Any Treatments: No Psychosocial: Yes Anxiety, Depression Integumentary: No Blood Disorders: No Adverse Reaction/Blood Tranf: No (N/A) Family Medical History Heart Disease, Diabetes, Hypertension, Stroke Physical Exam Vital Signs Vital Signs - First Documented 11/30/18 11/30/18 00:58 02:49 Temp 97.5 Pulse 84 Resp 19 B/P (MAP) 138/96 (110) Pulse Ox 97 Capillary Refill : Height, Weight, BMI Height: 5'4.00" Weight: 155lbs. 0.0oz. 70.055463me; 27.5 BMI Method:Stated General Appearance: No Apparent Distress, WD/WN, Anxious Neck: Full Range of Motion, Normal Inspection, Non Tender, Supple; No Carotid Bruit Respiratory: Normal Breath Sounds, No Accessory Muscle Use, No Respiratory Distress, Other (MARKED TENDERNESS TO MID STERNUM-PALPATION REPRODUCES PAIN ) Cardiovascular: Regular Rate, Rhythm, No Edema, No JVD, No Murmur, Normal Peripheral Pulses Gastrointestinal: Normal Bowel Sounds, No Organomegaly, No Pulsatile Mass, Non Tender, Soft Back: No CVA Tenderness Extremity: Normal Capillary Refill, Normal Inspection, Normal Range of Motion, Non Tender, No Calf Tenderness, No Pedal Edema Neurologic/Psychiatric: Alert, Oriented x3, No Motor/Sensory Deficits, window draper II- XII Norm as Tested Skin: Normal Color, Warm/Dry; No Rash Progress/Results/Core Measures Suspected Sepsis SIRS Temperature: Pulse: Respiratory Rate: Laboratory Tests 11/30/18 01:05: White Blood Count 5.1 Blood Pressure / Mean: Laboratory Tests 11/30/18 01:05: Creatinine 0.68, INR Comment 0.9, Platelet Count 198, Total Bilirubin 0.5 Results/Orders Lab Results Laboratory Tests Test 11/30/18 01:05 11/30/18 02:00 Range/Units White Blood Count 5.1 4.3-11.0 10^3/uL Red Blood Count 4.43 4.35-5.85 10^6/uL Hemoglobin 14.2 11.5-16.0 G/DL Hematocrit 42 35-52 % Mean Corpuscular Volume 95 80-99 FL Mean Corpuscular Hemoglobin 32 25-34 PG Mean Corpuscular Hemoglobin Concent 34 32-36 G/DL Red Cell Distribution Width 13.7 10.0-14.5 % Platelet Count 198 130-400 10^3/uL Mean Platelet Volume 9.9 7.4-10.4 FL Neutrophils (%) (Auto) 23 L 42-75 % Lymphocytes (%) (Auto) 65 H 12-44 % Monocytes (%) (Auto) 9 0-12 % Eosinophils (%) (Auto) 2 0-10 % Basophils (%) (Auto) 1 0-10 % Neutrophils # (Auto) 1.2 L 1.8-7.8 X 10^3 Lymphocytes # (Auto) 3.3 1.0-4.0 X 10^3 Monocytes # (Auto) 0.4 0.0-1.0 X 10^3 Eosinophils # (Auto) 0.1 0.0-0.3 10^3/uL Basophils # (Auto) 0.0 0.0-0.1 10^3/uL Prothrombin Time 12.3 12.2-14.7 SEC INR Comment 0.9 0.8-1.4 Activated Partial Thromboplast Time 31 24-35 SEC Sodium Level 142 135-145 MMOL/L Potassium Level 3.6 3.6-5.0 MMOL/L Chloride Level 104 98-107 MMOL/L Carbon Dioxide Level 24 21-32 MMOL/L Anion Gap 14 5-14 MMOL/L Blood Urea Nitrogen 4 L 7-18 MG/DL Creatinine 0.68 0.60-1.30 MG/DL Estimat Glomerular Filtration Rate > 60 BUN/Creatinine Ratio 6 Glucose Level 89 70-105 MG/DL Calcium Level 9.1 8.5-10.1 MG/DL Corrected Calcium 8.7 8.5-10.1 MG/DL Magnesium Level 2.3 1.8-2.4 MG/DL Total Bilirubin 0.5 0.1-1.0 MG/DL Aspartate Amino Transf (AST/SGOT) 40 H 5-34 U/L Alanine Aminotransferase (ALT/SGPT) 24 0-55 U/L Alkaline Phosphatase 89 40-136 U/L Total Creatine Kinase 65 29-168 U/L Creatine Kinase MB 0.9 <6.6 NG/ML Myoglobin 22.3 10.0-92.0 NG/ML Troponin I < 0.028 <0.028 NG/ML Total Protein 7.6 6.4-8.2 GM/DL Albumin 4.5 3.2-4.5 GM/DL Amylase Level 28 25-125 U/L Lipase 55 8-78 U/L Serum Alcohol 260 H <10 MG/DL Urine Color YELLOW Urine Clarity CLEAR Urine pH 6.5 5-9 Urine Specific [place] 1.005 L 1.016-1.022 Urine Protein NEGATIVE NEGATIVE Urine Glucose (UA) NEGATIVE NEGATIVE Urine Ketones NEGATIVE NEGATIVE Urine Nitrite NEGATIVE NEGATIVE Urine Bilirubin NEGATIVE NEGATIVE Urine Urobilinogen NORMAL NORMAL MG/DL Urine Leukocyte Esterase NEGATIVE NEGATIVE Urine RBC (Auto) NEGATIVE NEGATIVE Urine RBC NONE /HPF Urine WBC 0-2 /HPF Urine Squamous Epithelial Cells 0-2 /HPF Urine Crystals NONE /LPF Urine Bacteria TRACE /HPF Urine Casts NONE /LPF Urine Mucus NEGATIVE /LPF Urine Culture Indicated NO Urine Opiates Screen NEGATIVE NEGATIVE Urine Oxycodone Screen NEGATIVE NEGATIVE Urine Methadone Screen NEGATIVE NEGATIVE Urine Propoxyphene Screen NEGATIVE NEGATIVE Urine Barbiturates Screen NEGATIVE NEGATIVE Ur Tricyclic Antidepressants Screen NEGATIVE NEGATIVE Urine Phencyclidine Screen NEGATIVE NEGATIVE Urine Amphetamines Screen NEGATIVE NEGATIVE Urine Methamphetamines Screen NEGATIVE NEGATIVE Urine Benzodiazepines Screen NEGATIVE NEGATIVE Urine Cocaine Screen NEGATIVE NEGATIVE Urine Cannabinoids Screen NEGATIVE NEGATIVE Micro Results Microbiology 11/30/18 Influenza Types A,B Antigen (BRYSON) - Final, Complete My Orders Orders - PAU FOSTER DO Cbc With Automated Diff (11/30/18 01:00) Magnesium (11/30/18 01:00) Chest 1 View, Ap/Pa Only (11/30/18 01:00) Ekg Tracing (11/30/18 01:00) Cardiac Profile 1 (11/30/18 01:00) Comprehensive Metabolic Panel (11/30/18 01:00) Myoglobin Serum (11/30/18 01:00) Protime With Inr (11/30/18 01:00) Partial Thromboplastin Time (11/30/18 01:00) O2 (11/30/18 01:00) Monitor-Rhythm Ecg Trace Only (11/30/18 01:00) Saline Lock/Iv-Start (11/30/18 01:00) Creatine Kinase (11/30/18 01:00) Creatine Kinase Mb (11/30/18 01:00) Lipase (11/30/18 01:00) Amylase (11/30/18 01:00) Ua Culture If Indicated (11/30/18 01:00) Influenza A And B Antigens (11/30/18 01:00) Ketorolac Injection (Toradol Injection) (11/30/18 01:30) Alcohol (11/30/18 01:48) Drug Screen Stat (Urine) (11/30/18 01:48) Medications Given in ED Current Medications Medications Dose Ordered Sig/Osmany Route Start Time Stop Time Status Last Admin Dose Admin Ketorolac Tromethamine 30 mg ONCE ONCE IVP 11/30/18 01:30 11/30/18 01:31 DC 11/30/18 01:41 30 MG Vital Signs/I&O 11/30/18 11/30/18 00:58 02:49 Temp 97.5 97.5 Pulse 84 74 Resp B/P (MAP) 138/96 (110) 119/81 (94) Pulse Ox 97 Capillary Refill : Progress Note : Progress Note SYMPTOMS RESOLVED WITH TORADOL UNEVENTFUL ER STAY OFFERED TO DO ADDITIONAL TESTING SUCH CT AND PT DECLINES. PT STATES SHE HAS BEEN VERY ANXIOUS ABOUT THE DIARRHEA SHE HAS BEEN HAVING, AND REALLY NEEDS A NOTE FOR WORK--STATES SHE HAS MISSED WORK ALL WEEK DUE TO DIARRHEA. ECG Initial ECG Impression Date: Nov 30, 2018 Initial ECG Impression Time: 00:55 Initial ECG Rate: 80 Initial ECG Rhythm: Normal Sinus Diagnostic Imaging Comments CXR--NO ACUTE PROCESS, PENDING RADIOLOGIST REVIEW Reviewed: Reviewed by Me Departure Impression Primary Impression: Chest wall pain Additional Impressions: Anxiety Gastroenteritis Gastroesophageal reflux disease Chronic diarrhea Disposition: HOME, SELF-CARE Condition: Improved Departure-Patient Inst. Referrals: MACRINA MANE MD (PCP/Family) Primary Care Physician Patient Instructions: Acid Reflux (Gastroesophageal Reflux Disease), Adult (DC) , Chest Pain That Is Not Caused by the Heart (DC), Costochondritis (DC), Viral Gastroenteritis, Adult (DC) Add. Discharge Instructions: CLEAR LIQUIDS--WATER, BROTH, JELLO, GATORADE BRATS DIET--BANANAS, RICE, APPLESAUCE, TOAST, SALTINES CONTINUE YOUR REGULAR MEDICATIONS PRESCRIBED FOLLOW UP WITH YOUR DR IN 2-3 DAYS IF NO BETTER RETURN TO ER IF WORSE All discharge instructions reviewed with patient and/or family. Voiced understanding. Work/School Note: Work Release Form Date Seen in the Emergency Department: Nov 29, 2018 Return to Work: Dec 03, 2018 PAU FOSTER DO Nov 30, 2018 02:42
[2018-11-30 02:49] VITALS: BP 119/81
--- NOTE | 2018-11-30 07:33 | Diagnostic Imaging Report ---
Indication: Chest pain. Comparison with 09/27/2018. Findings: The lungs are well-aerated and clear. The heart is not enlarged. There is no pulmonary edema. No hilar adenopathy. No pneumothorax or pleural effusion. IMPRESSION: Normal portable chest. Dictated by: Dictated on workstation # [id number]
== END 2018-11-30 02:52 | disposition home or self-care (01) ==
LOC: EDUNIT# 00:47 → ER 00:50
DX: R07.89 Other chest pain (principal); K21.0 Gastro-esophageal reflux disease with esophagitis; F41.9 Anxiety disorder, unspecified; K52.9 Noninfective gastroenteritis and colitis, unspecified; F32.9 Major depressive disorder, single episode, unspecified; Z82.49 Family history of ischemic heart disease and other diseases of the circulatory system; Z80.0 Family history of malignant neoplasm of digestive organs; Z88.2 Allergy status to sulfonamides; Z87.891 Personal history of nicotine dependence; Z98.890 Other specified postprocedural states; Z87.19 Personal history of other diseases of the digestive system; Z90.89 Acquired absence of other organs; Z90.49 Acquired absence of other specified parts of digestive tract
CPT/HCPCS: 36415; 71045; 80053; 80306; 80320; 81000; 82150; 82550; 82553; 83690; 83735; 83874; 84484; 85025; 85610; 85730; 87804; 93005; 93041

== ENCOUNTER 2022-08-19 10:43 | Emergency (ER) | payer BC ==
[~2022-08-19] VITALS: Ht 162 cm; Wt 60.0 kg
[~2022-08-19 10:43] MED LIST changes: +OMEP20TA56 PO; -OMEP20TA7 PO; -OMEP40CA36 PO; +OMEP40CA6 PO; +ONDA-105; -ONDA4TAB10
[2022-08-19 11:24] LABS: BASOPHILS % (AUTO) 1 % (0-10); EOSINOPHILS # (AUTO) 0.1 10^3/uL (0.0-0.3); EOSINOPHILS % (AUTO) 1 % (0-10); HEMATOCRIT 42 % (35-52); HEMOGLOBIN 14.4 g/dL (11.5-16.0); LYMPHOCYTES # (AUTO) 2.1 10^3/uL (1.0-4.0); LYMPHOCYTES % (AUTO) 43 % (12-44); MEAN CORPUSCULAR HEMOGLOBIN 32 pg (25-34); MEAN CORPUSCULAR HGB CONC 34 g/dL (32-36); MEAN CORPUSCULAR VOLUME 93 fL (80-99); MEAN PLATELET VOLUME 10.1 fL (9.0-12.2); MONOCYTES # (AUTO) 0.5 10^3/uL (0.0-1.0); MONOCYTES % (AUTO) 11 % (0-12); NEUTROPHILS # (AUTO) 2.2 10^3/uL (1.8-7.8); NEUTROPHILS % (AUTO) 45 % (42-75); PLATELET COUNT 195 10^3/uL (130-400); WHITE BLOOD COUNT 4.8 10^3/uL (4.3-11.0)
[2022-08-19 11:29] LABS: INR 0.9 (0.8-1.4); PROTHROMBIN TIME PATIENT 12.8 SEC (12.2-14.7)
[2022-08-19 11:30] LABS: ALBUMIN 4.6 GM/DL (3.2-4.5); CHLORIDE 100 MMOL/L (98-107); POTASSIUM 3.7 MMOL/L (3.6-5.0); SODIUM 137 MMOL/L (135-145)
[2022-08-19] MEDS ORDERED: ASPIRIN 81 MG CHEW (CHILDREN'S ASA) PO ONE (11:30)
[2022-08-19 11:31] LABS: CALCIUM 9.3 MG/DL (8.5-10.1)
[2022-08-19 11:32] LABS: GLUCOSE 102 MG/DL (70-105); TOTAL PROTEIN 8.1 GM/DL (6.4-8.2)
[2022-08-19 11:33] LABS: CARBON DIOXIDE 22 MMOL/L (21-32)
[2022-08-19 11:34] LABS: BILIRUBIN,TOTAL 0.8 MG/DL (0.1-1.0)
[2022-08-19 11:36] LABS: ALKALINE PHOSPHATASE 70 U/L (40-136); CREATININE SERUM 0.63 MG/DL (0.60-1.30); GFR ESTIMATED 104
--- NOTE | 2022-08-19 11:36 | Diagnostic Imaging Report ---
INDICATION: Chest pain EXAMINATION: Chest 08/19/2022 COMPARISON: 11/30/2018 Single view chest FINDINGS: The cardiomediastinal silhouette is unremarkable. The pulmonary vasculature is within normal limits. The lungs and pleural spaces are clear. IMPRESSION: No evidence of an acute cardiopulmonary process. Dictated by: Dictated on workstation # [id number]
[2022-08-19 11:37] LABS: BUN/CREATININE RATIO 10
[2022-08-19 11:39] LABS: ALANINE AMINOTRANSFERASE 29 U/L (0-55); MAGNESIUM 1.6 MG/DL (1.6-2.4)
--- NOTE | 2022-08-19 12:16 | ED Chest Pain ---
General Chief Complaint: Psych/Social Disorder Stated Complaint: CHEST PAINS | ANXIETY Nursing Triage Note: ARRIVED VIA AMB TO ROOM 07 WITH COMPLAINTS OF CHEST PRESSURE/ANXIETY THAT STARTED APPX 1 HR ANALYTICAL LEAD. STATES SHE HAS BEEN UNDER PRESSURE AT WORK AND HAD A RECENT IN THE FAMILY. WHEN ASKED WHAT MAKES THE PAIN WORSE SHE STATES "WORRYING". Source: patient Exam Limitations: no limitations History of Present Illness Date Seen by Provider: Aug 19, 2022 Time Seen by Provider: 11:00 Initial Comments 57-year-old female presents to the emergency department today with a chief complaint of midsternal chest discomfort. She describes it as a "pain" that occasionally radiates into her back. She woke up with it this morning at about 4 AM. She states it has been constant since that time. She associates some nausea and shortness of breath with it. No diaphoresis. Nothing seems to make the pain any worse or any better. She does note that it tends to come on with increased "stress". She has been under a significant amount of stress at work recently. She has had prior chest pain evaluation in the past. She had a stress test with Dr. Jarad Pierson at [facility] about 4 years a go. No subsequent heart cath was done. She has never been diagnosed with hypertension, is not on antihypertensive pills. She has not ever been a smoker. Takes no daily prescribed medications. She has been around workmates with COVID in the last week to 2 weeks. She did have COVID at the beginning of June 2022. She denies cough, congestion. No diarrhea that is unusual. No fevers or chills. She currently rates her chest discomfort at a "2". She did take some Tylenol today, no aspirin. No family members/first-degree relatives with coronary artery disease. She was seen at [facility] yesterday and earlier in the week at [facility] clinic. All other review of systems reviewed and negative except as stated. Timing/Duration: 4-6 hours, 4-5 days (initially started 4-5 d ago) Severity/Quality: moderate, aching Location: substernal Radiation: back Activities at Onset: emotional stress Prior CP/Workup: stress test ASA po ANALYTICAL LEAD: No NTG SL ANALYTICAL LEAD: No Associated Symptoms: shortness of breath Allergies and Home Medications Allergies Coded Allergies: Sulfa (Sulfonamide Antibiotics) (Verified Allergy, Unknown, 03/11/18) Patient Home Medication List Home Medication List Reviewed: Yes Hydrocodone Bit/Acetaminophen (Lortab 7.5 Mg Tablet) 1 Ea Tablet, 1 EACH PO Q4H PRN for PAIN-MODERATE Prescribed by: LATASHA GONZÁLES on 09/06/18 1250 L. Rhamnosus GG/Inulin (Culturelle Capsule) 1 Each Cap.sprink, 1 EACH PO DAILY PRN for DIARRHEA, (Reported) Entered as Reported by: DEZ SCHNEIDER on 08/30/18 1524 Multivitamin (Multi-Vitamin Daily) 1 Each Tablet, 1 EACH PO DAILY, (Reported) Entered as Reported by: MANJULA ROCKWELL on 03/13/18 1305 Omeprazole (Omeprazole) 40 Mg Capsule.dr, 40 MG PO DAILY PRN for INDIGESTION, (Reported) Entered as Reported by: DEZ SCHNEIDER on 08/30/18 1524 Ondansetron HCl (Ondansetron HCl) 4 Mg Tablet, (Reported) Entered as Reported by: NENITA RAMIRES on 09/27/18 0713 Review of Systems Review of Systems Constitutional: see HPI EENTM: No Symptoms Reported Respiratory: Shortness of Air Cardiovascular: Chest Pain Gastrointestinal: Nausea Genitourinary: No Symptoms Reported Musculoskeletal: no symptoms reported Skin: no symptoms reported Psychiatric/Neurological: No Symptoms Reported All Other Systems Reviewed Negative Unless Noted: Yes Past Ygxummr-Vtmifr-Ckoclt Hx Patient Social History Tobacco Use?: No Substance use?: No Alcohol Use?: Yes Alcohol Frequency: Once in a while Immunizations Up To Date Second COVID19 Vaccination Darnell: UNKNOWN COVID19 Vaccine Tube Operator: JOHN Seasonal Allergies Seasonal Allergies: Yes Past Medical History Surgeries: Yes (RIGHT ACL REPAIR; HIATAL HERNIA REPAIR 09/2018; EGD'S-LAST ONE 09/29/18; ) Abdominal, Adenoidectomy, Gallbladder, Orthopedic, Tonsillectomy Respiratory: No Cardiac: No Neurological: No Reproductive Disorders: No Sexually Transmitted Disease: No HIV/AIDS: No Genitourinary: No Gastrointestinal: Yes Gastroesophageal Reflux, Liver Disease/Jaundice, Chronic Diarrhea, Esophagitis, Hiatal Hernia Musculoskeletal: Yes (RIGHT ACL REPAIR) Endocrine: No HEENT: No Loss of Vision: Bilateral Hearing Impairment: Denies Cancer: No Did You Recieve Any Treatments: No Psychosocial: Yes Anxiety, Depression Integumentary: No Blood Disorders: No Adverse Reaction/Blood Tranf: No (N/A) Family Medical History Heart Disease, Diabetes, Hypertension, Stroke Physical Exam Vital Signs Vital Signs - First Documented 08/19/22 10:43 Temp 36.3 Pulse 92 Resp 16 B/P (MAP) 167/102 (123) Pulse Ox 96 O2 Delivery Room Air Capillary Refill : Height, Weight, BMI Height: 5'4.00" Weight: 155lbs. 0.0oz. 70.817177bw; 22.00 BMI Method:Stated General Appearance: No Apparent Distress, WD/WN HEENT: PERRL/EOMI Neck: Normal Inspection Respiratory: Chest Non Tender, Lungs Clear, Normal Breath Sounds, No Accessory Muscle Use, No Respiratory Distress Cardiovascular: Regular Rate, Rhythm (Slightly tacky heart rate 100), Normal Peripheral Pulses Gastrointestinal: Normal Bowel Sounds, Non Tender, Soft Extremity: Normal Capillary Refill, Normal Inspection, Normal Range of Motion, Non Tender, No Calf Tenderness, No Pedal Edema Neurologic/Psychiatric: Alert, Oriented x3, No Motor/Sensory Deficits, Normal Mood/Affect Skin: Normal Color, Warm/Dry Progress/Results/Core Measures Results/Orders Lab Results Laboratory Tests Test 08/19/22 10:50 08/19/22 11:56 Range/Units White Blood Count 4.8 4.3-11.0 10^3/uL Red Blood Count 4.48 3.80-5.11 10^6/uL Hemoglobin 14.4 11.5-16.0 g/dL Hematocrit 42 35-52 % Mean Corpuscular Volume 93 80-99 fL Mean Corpuscular Hemoglobin 32 25-34 pg Mean Corpuscular Hemoglobin Concent 34 32-36 g/dL Red Cell Distribution Width 12.5 10.0-14.5 % Platelet Count 195 130-400 10^3/uL Mean Platelet Volume 10.1 9.0-12.2 fL Immature Granulocyte % (Auto) 0 % Neutrophils (%) (Auto) 45 42-75 % Lymphocytes (%) (Auto) 43 12-44 % Monocytes (%) (Auto) 11 0-12 % Eosinophils (%) (Auto) 1 0-10 % Basophils (%) (Auto) 1 0-10 % Neutrophils # (Auto) 2.2 1.8-7.8 10^3/uL Lymphocytes # (Auto) 2.1 1.0-4.0 10^3/uL Monocytes # (Auto) 0.5 0.0-1.0 10^3/uL Eosinophils # (Auto) 0.1 0.0-0.3 10^3/uL Basophils # (Auto) 0.0 0.0-0.1 10^3/uL Immature Granulocyte # (Auto) 0.0 0.0-0.1 10^3/uL Prothrombin Time 12.8 12.2-14.7 SEC INR Comment 0.9 0.8-1.4 Activated Partial Thromboplast Time 31 24-35 SEC Sodium Level 137 135-145 MMOL/L Potassium Level 3.7 3.6-5.0 MMOL/L Chloride Level 100 98-107 MMOL/L Carbon Dioxide Level 22 21-32 MMOL/L Anion Gap 15 H 5-14 MMOL/L Blood Urea Nitrogen 6 L 7-18 MG/DL Creatinine 0.63 0.60-1.30 MG/DL Estimat Glomerular Filtration Rate 104 BUN/Creatinine Ratio 10 Glucose Level 102 70-105 MG/DL Calcium Level 9.3 8.5-10.1 MG/DL Corrected Calcium 8.5-10.1 MG/DL Magnesium Level 1.6 1.6-2.4 MG/DL Total Bilirubin 0.8 0.1-1.0 MG/DL Aspartate Amino Transf (AST/SGOT) 41 H 5-34 U/L Alanine Aminotransferase (ALT/SGPT) 29 0-55 U/L Alkaline Phosphatase 70 40-136 U/L Myoglobin 29.4 10.0-92.0 NG/ML Troponin I < 0.028 <0.028 NG/ML Total Protein 8.1 6.4-8.2 GM/DL Albumin 4.6 H 3.2-4.5 GM/DL SARS-CoV-2 RNA (RT-PCR) Not Detected Not Detecte My Orders Orders - LUZ MARIA BRYAN MD Cbc With Automated Diff (08/19/22 11:16) Magnesium (08/19/22 11:16) Chest 1 View, Ap/Pa Only (08/19/22 11:16) Comprehensive Metabolic Panel (08/19/22 11:16) Myoglobin Serum (08/19/22 11:16) Protime With Inr (08/19/22 11:16) Partial Thromboplastin Time (08/19/22 11:16) O2 (08/19/22 11:16) Monitor-Rhythm Ecg Trace Only (08/19/22 11:16) Ed Iv/Invasive Line Start (08/19/22 11:16) Troponin I [place] (08/19/22 11:16) Aspirin Chewable Tablet (Baby Aspirin Ch (08/19/22 11:30) Covid 19 Inhouse Test (08/19/22 11:16) Isolation Central Supply Req (08/19/22 11:16) Ibuprofen Tablet (Motrin Tablet) (08/19/22 12:30) Medications Given in ED Vital Signs/I&O 08/19/22 08/19/22 10:43 12:55 Temp 36.3 Pulse 92 97 Resp 16 16 B/P (MAP) 167/102 (123) 142/87 Pulse Ox 96 97 O2 Delivery Room Air Room Air Blood Pressure Mean: 123 Progress Progress Note : Time: 12:38 Progress Note Patient seen and examined, 57-year-old with atypical chest pain. Evaluation today includes a physical exam, cardiac enzymes, basic laboratory studies EKG and chest x-ray. Patient has been slightly hypertensive throughout her stay. Consideration for acute coronary syndrome, also in the differential diagnosis aortic dissection, GERD, anxiety. Patient's vital signs and physical examination and characteristic of dissection. Pain is minimal. Chest x-ray is reviewed and normal. EKG slightly tachycardic without ST segment elevation or depression, negative cardiac markers indicative of STEMI/NSTEMI. Patient is reassured. Advised to follow-up with her primary care physician for further evaluation and management of potential hypertension. No indications for emergent CT. Return precautions provided to the patient. Recommendations to try and decrease her stress level. All questions are sought and answered. Patient is stable for discharge Initial ECG Impression Date: Aug 19, 2022 Initial ECG Impression Time: 11:37 Initial ECG Rate: 93 Initial ECG Rhythm: Normal Sinus Initial ECG Intervals: Normal Initial ECG Impression: Normal Initial ECG Comparisson: No Previous ECG Available Diagnostic Imaging Diagonstic Imaging: Xray Plain Films/CT/US/NM/MRI: chest Comments [facility], [place] NAME: MAXARTURO Mae [facility] REC#: [id number] PT STATUS: REG ER : 1965 PHYSICIAN: LUZ MARIA BRYAN MD ADMIT DATE: 08/19/22/ER Signed Date of Exam:08/19/22 CHEST 1 VIEW, AP/PA ONLY INDICATION: Chest pain EXAMINATION: Chest 08/19/2022 COMPARISON: 11/30/2018 Single view chest FINDINGS: The cardiomediastinal silhouette is unremarkable. The pulmonary vasculature is within normal limits. The lungs and pleural spaces are clear. IMPRESSION: No evidence of an acute cardiopulmonary process. Dictated by: Dictated on workstation # [id number] Dict: 08/19/22 1135 Trans: 08/19/22 1136 [employer] [facility] [id number] Interpreted by: NICOLE SCOTT MD Electronically signed by: NICOLE SCOTT MD 08/19/22 1136 Departure Impression Primary Impression: Chest pain Qualified Codes: R07.9 - Chest pain, unspecified Additional Impressions: HBP (high blood pressure) Qualified Codes: I10 - Essential (primary) hypertension Stress at work Disposition: HOME, SELF-CARE Condition: Stable Departure-Patient Inst. Decision time for Depature: 12:41 Referrals: MACRINA MANE MD (PCP/Family) Primary Care Physician Patient Instructions: Stress, Chest Pain That Is Not Caused by the Heart (DC) Add. Discharge Instructions: Please follow-up with your primary care physician for further evaluation and management of your blood pressure. Try and find ways to decrease stress levels to help improve health. Return to the emergency department if you have any worsening symptoms or new, e mergent concerns. Work/School Note: Work Release Form Date Seen in the Emergency Department: Aug 19, 2022 Return to Work: Aug 22, 2022 Copy Copies To 1: MACRINA MANE MD, KATHRYN M MD Aug 19, 2022 12:16
[2022-08-19] MEDS ORDERED: IBUPROFEN 600 MG (MOTRIN) TAB PO ONE (12:30)
[2022-08-19 12:55] VITALS: BP 142/87
== END 2022-08-19 12:55 | disposition home or self-care (01) ==
LOC: EDUNIT# 10:43 → ER 10:44
DX: I10 Essential (primary) hypertension (principal); Z56.3 Stressful work schedule; Z86.16 Personal history of COVID-19; Z20.822 Contact with and (suspected) exposure to COVID-19
CPT/HCPCS: 36415; 71045; 80053; 83735; 83874; 84484; 85025; 85610; 85730; 87636; 93005; 93041